=== PATIENT | female | born 1955 | race Caucasian/White ===

== ENCOUNTER 2016-09-29 16:50 | Inpatient (IN) | payer SELFPAY ==
[2016-09-29] MEDS ORDERED: NS 0.9% 1000 ML* 2,000 ML IV ONE (17:36)
[2016-09-29 18:50] LABS: Hematocrit 34 % (35-47); Hemoglobin 10.6 g/dl (12.0-16.0); Mean Corpuscular HGB Conc 31 g/dl (31-36); Mean Corpuscular Hemoglobin 23 pg (27-31); Mean Corpuscular Volume 73 fL (80-97); Mean Platelet Volume 8 um3 (7.4-10.4); Red Blood Count 4.69 10^6/ul (4.0-5.4); Red Cell Distribution Width 19 % (10.5-15); White Blood Count 13.9 10^3/ul (3.5-10.8)
[2016-09-29 18:51] LABS: Add Diff/Slide Review? Slide Review Added; Comments Flag Yes
[2016-09-29 19:05] LABS: Albumin 4.3 g/dL (3.2-5.2); BUN/Creatinine Ratio 21.9 (8-20); C Reactive Protein 83.55 mg/L (< 5.00); Calcium 9.7 mg/dL (8.6-10.3); EGFR Non-African American 59.1 (>60); Magnesium 2.2 mg/dL (1.9-2.7); Potassium 3.8 mmol/L (3.5-5.0); Total Protein 7.3 g/dL (6.4-8.9)
[2016-09-29 19:09] LABS: Troponin I 0.07 ng/mL (<0.04)
--- NOTE | 2016-09-29 19:10 | RAD ---
Indication: Right leg pain and edema. Duplex Doppler sonography of the deep venous system of the right lower extremity deep venous system was performed. Right common femoral vein, proximal greater saphenous vein, proximal deep femoral vein, femoral vein, popliteal vein, posterior tibial veins and peroneal veins appear to demonstrate echogenic material with no flow.. Findings are consistent with deep venous thrombosis in the right lower extremity. The left common femoral vein demonstrates wall thickening consistent with old deep venous thrombosis. IMPRESSION: EXTENSIVE DEEP VENOUS THROMBOSIS FROM THE RIGHT COMMON FEMORAL VEIN TO THE PERONEAL VEINS.
--- NOTE | 2016-09-29 19:16 | RAD ---
Indication: Shortness of breath, pneumonia. 2 views of the chest demonstrates no mediastinal shift. Heart is of normal size and configuration. Lung evans demonstrate no pleural fluid, pneumonia or pneumothorax. No alveolar consolidation is noted. There are multiple metallic densities throughout both lung evans. 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 IMPRESSION: No active cardiopulmonary disease is noted. 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
[2016-09-29 19:45] LABS: TSH (Thyroid Stimulating Horm) 1.47 mcIU/mL (0.34-5.60)
[2016-09-29] MEDS ORDERED: Heparin VIAL(*) 5000 UNITS/ML VIAL (FIVE THOUSAND) IV SCH (20:00)
[2016-09-29 20:06] LABS: Hematocrit 31 % (35-47); Hemoglobin 9.8 g/dl (12.0-16.0); Mean Corpuscular HGB Conc 32 g/dl (31-36); Mean Corpuscular Hemoglobin 23 pg (27-31); Mean Platelet Volume 8 um3 (7.4-10.4); Red Blood Count 4.22 10^6/ul (4.0-5.4); Red Cell Distribution Width 19 % (10.5-15); White Blood Count 10.5 10^3/ul (3.5-10.8)
[2016-09-29 20:09] LABS: Comments Flag Yes
[2016-09-29 20:10] LABS: Mean Corpuscular Volume 73 fL (80-97)
[2016-09-29] MEDS ORDERED: Iodixanol* (CONTRAST) 320 MG/ML 100 ML SDV IV ONE (20:25)
--- NOTE | 2016-09-29 20:27 | ED ---
Kelsey Vega Michael, scribed for Pineda Slater MD on 09/29/16 at 1746 . Complex/Multi-Sys Presentation - HPI Summary HPI Summary: 60 y/o female comes to the ED presenting with multiple sx that started two days ago. The pt reports that that her blood pressure has been decreasing for the past two days. Her blood pressure at home was 80/50 per nurse's note. Today the pt had generalized weakness and was unable to get up after a mechanical fall today. She also c/o right groin pain that radiates to her back and down the RLE. She is worried about a DVT because she has a positive hx of DVT. The pt is also presents dizziness, chills, near syncope, visual changes for 30 minutes one day ago, CP, and SOB that is aggravated with deep breathes. She denies fever. The PMHx is significant for HHT and DVT. - History Of Current Complaint Chief Complaint: EDWeakness Time Seen by Provider: 09/29/16 17:18 Hx Obtained From: Patient, Medical Records Onset/Duration: Sudden Onset, Lasting Days Severity Currently: Moderate Severity Initially: Moderate Location: Pain At: - right groin, Radiates To: - back and down RLE Aggravating Factor(s): SOB-aggravated by deep breathes Associated Signs And Symptoms: Positive: SOB, Chest Pain, Back Pain, Other - presents dizziness, chills, near syncope, visual changes. Negative: Dysuria, Fever - Allergies/Home Medications Allergies/Adverse Reactions: Allergies Allergy/AdvReac Type Severity Reaction Status Date / Time Penicillins Allergy Severe See Comment Verified 06/05/16 23:40 No MRI Allergy See Comment Uncoded 06/05/16 23:42 contrast AdvReac See Comment Uncoded 06/05/16 23:43 PMH/Surg Hx/FS Hx/Imm Hx Endocrine/Hematology History: Reports: Hx Blood Disorders, Hx Blood Transfusions - 2 units PRBC's given today. 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 No new growth. Occured over 10 years ago. No use of chemotherapy, or radiation. Hx Chemotherapy: No Hx Radiation Therapy: No - Surgical History Surgery Procedure, Year, and Place: 2004 back surgery; bone spur removed from spinal column Hx Anesthesia Reactions: No Infectious Disease History: No Infectious Disease History: Denies: Traveled Outside the [place] in Last 30 Days - Family History Known Family History: Positive: None Family History: No FHx of Breast CA - Social History Occupation: Unemployed Lives: Alone Alcohol Use: None Substance Use Type: Reports: None Smoking Status (MU): Never Smoked Tobacco Review of Systems Positive: Chills. Negative: Fever Positive: Other - visual changes Positive: Chest Pain Positive: Shortness Of Breath Neurological: Other - dizziness-described as near syncope Positive: Weakness All Other Systems Reviewed And Are Negative: Yes Physical Exam - Summary Physical Exam Summary: The patient is well-nourished in no acute distress and in no acute pain. The skin is warm and dry and skin color reflects adequate perfusion. HEENT: The head is normocephalic and atraumatic. The pupils are equal and reactive. The conjunctivae are clear and without drainage. Nares are patent and without drainage. Mouth reveals dry mucous membranes and the throat is without erythema and exudate. The external ears are intact. The ear canals are patent and without drainage. The tympanic membranes are intact. Neck is supple with full range of motion and non-tender. There are no carotid bruits. There is mild neck vein distension. Respiratory: Chest is non-tender. Lungs are clear to auscultation and breath sounds are symmetrical and equal. Cardiovascular: Hear is regular rate and rhythm. There is no murmur or rub auscultated. There is no peripheral edema and pulses are symmetrical and equal. Abdomen: The abdomen is soft with RLQ tenderness. There are normal bowel sounds heard in all four quadrants and there is no organomegaly palpated. Musculoskeletal: Right high tenderness with full range of motion. There is good capillary refill. There is no peripheral edema or calf tenderness elicited. Neurological: Patient is alert and oriented to person, place and time. The patient has generalized weakness. Psychiatric: The patient has an appropriate affect and does not exhibit any anxiety or depression. Triage Information Reviewed: Yes Vital Signs On Initial Exam: Initial Vitals Temp Pulse Resp BP Pulse Ox 98.7 F 128 19 93/63 84 09/29/16 16:59 09/29/16 16:59 09/29/16 16:59 09/29/16 16:59 09/29/16 16:59 Vital Signs Reviewed: Yes Diagnostics - Vital Signs Vital Signs Temp Pulse Resp BP Pulse Ox 09/29/16 16:59 98.7 F 128 19 93/63 84 - Laboratory Lab Results: Lab Results 09/29/16 09/29/16 09/29/16 Range/Units 18:40 18:40 18:40 WBC 13.9 H (3.5-10.8) 10^3/ul RBC 4.69 (4.0-5.4) 10^6/ul Hgb 10.6 L (12.0-16.0) g/dl Hct 34 L (35-47) % MCV 73 L (80-97) fL MCH 23 L (27-31) pg MCHC 31 (31-36) g/dl RDW 19 H (10.5-15) % Plt Count 165 (150-450) 10^3/ul MPV 8 (7.4-10.4) um3 Neut % (Auto) 84.4 H (38-83) % Lymph % (Auto) 8.7 L (25-47) % [place]acier % (Auto) 5.9 (1-9) % Eos % (Auto) 0.4 (0-6) % Baso % (Auto) 0.6 (0-2) % Absolute Neuts (auto) 11.8 H (1.5-7.7) 10^3/ul Absolute Lymphs (auto) 1.2 (1.0-4.8) 10^3/ul Absolute Monos (auto) 0.8 (0-0.8) 10^3/ul Absolute Eos (auto) 0 (0-0.6) 10^3/ul Absolute Basos (auto) 0.1 (0-0.2) 10^3/ul Absolute Nucleated RBC 0 10^3/ul Nucleated RBC % 0 INR (Anticoag Therapy) 1.16 H (0.89-1.11) APTT 27.6 (26.0-36.3) seconds Sodium 132 L (133-145) mmol/L Potassium 3.8 (3.5-5.0) mmol/L Chloride 98 L (101-111) mmol/L Carbon Dioxide 27 (22-32) mmol/L Anion Gap 7 (2-11) mmol/L BUN 21 (6-24) mg/dL Creatinine 0.96 H (0.51-0.95) mg/dL Est GFR ( Amer) 76.0 (>60) Est GFR (Non-Af Amer) 59.1 (>60) BUN/Creatinine Ratio 21.9 H (8-20) Glucose 111 H (70-100) mg/dL Lactic Acid (0.5-2.0) mmol/L Calcium 9.7 (8.6-10.3) mg/dL Magnesium 2.2 (1.9-2.7) mg/dL Total Bilirubin 2.00 H (0.2-1.0) mg/dL AST 10 L (13-39) U/L ALT 10 (7-52) U/L Alkaline Phosphatase 108 H (34-104) U/L Troponin I 0.07 H* (<0.04) ng/mL C-Reactive Protein 83.55 H (< 5.00) mg/L B-Natriuretic Peptide ( - 100) pg/mL Total Protein 7.3 (6.4-8.9) g/dL Albumin 4.3 (3.2-5.2) g/dL Globulin 3.0 (2-4) g/dL Albumin/Globulin Ratio 1.4 (1-3) TSH 1.47 (0.34-5.60) mcIU/mL 09/29/16 09/29/16 09/29/16 Range/Units 18:40 18:40 19:55 WBC (3.5-10.8) 10^3/ul RBC (4.0-5.4) 10^6/ul Hgb (12.0-16.0) g/dl Hct (35-47) % MCV (80-97) fL MCH (27-31) pg MCHC (31-36) g/dl RDW (10.5-15) % Plt Count (150-450) 10^3/ul MPV (7.4-10.4) um3 Neut % (Auto) (38-83) % Lymph % (Auto) (25-47) % Glacier % (Auto) (1-9) % Eos % (Auto) (0-6) % Baso % (Auto) (0-2) % Absolute Neuts (auto) (1.5-7.7) 10^3/ul Absolute Lymphs (auto) (1.0-4.8) 10^3/ul Absolute Monos (auto) (0-0.8) 10^3/ul Absolute Eos (auto) (0-0.6) 10^3/ul Absolute Basos (auto) (0-0.2) 10^3/ul Absolute Nucleated RBC 10^3/ul Nucleated RBC % INR (Anticoag Therapy) (0.89-1.11) APTT 25.7 L (26.0-36.3) seconds Sodium (133-145) mmol/L Potassium (3.5-5.0) mmol/L Chloride (101-111) mmol/L Carbon Dioxide (22-32) mmol/L Anion Gap (2-11) mmol/L BUN (6-24) mg/dL Creatinine (0.51-0.95) mg/dL Est GFR ( Amer) (>60) Est GFR (Non-Af Amer) (>60) BUN/Creatinine Ratio (8-20) Glucose (70-100) mg/dL Lactic Acid 1.8 (0.5-2.0) mmol/L Calcium (8.6-10.3) mg/dL Magnesium (1.9-2.7) mg/dL Total Bilirubin (0.2-1.0) mg/dL AST (13-39) U/L ALT (7-52) U/L Alkaline Phosphatase (34-104) U/L Troponin I (<0.04) ng/mL C-Reactive Protein (< 5.00) mg/L B-Natriuretic Peptide 12 ( - 100) pg/mL Total Protein (6.4-8.9) g/dL Albumin (3.2-5.2) g/dL Globulin (2-4) g/dL Albumin/Globulin Ratio (1-3) TSH (0.34-5.60) mcIU/mL 09/29/16 09/29/16 Range/Units 19:55 19:55 WBC 10.5 (3.5-10.8) 10^3/ul RBC 4.22 (4.0-5.4) 10^6/ul Hgb 9.8 L (12.0-16.0) g/dl Hct 31 L (35-47) % MCV 73 L (80-97) fL MCH 23 L (27-31) pg MCHC 32 (31-36) g/dl RDW 19 H (10.5-15) % Plt Count 149 L (150-450) 10^3/ul MPV 8 (7.4-10.4) um3 Neut % (Auto) 83.1 H (38-83) % Lymph % (Auto) 9.3 L (25-47) % [place] % (Auto) 6.6 (1-9) % Eos % (Auto) 0.4 (0-6) % Baso % (Auto) 0.6 (0-2) % Absolute Neuts (auto) 8.7 H (1.5-7.7) 10^3/ul Absolute Lymphs (auto) 1.0 (1.0-4.8) 10^3/ul Absolute Monos (auto) 0.7 (0-0.8) 10^3/ul Absolute Eos (auto) 0 (0-0.6) 10^3/ul Absolute Basos (auto) 0.1 (0-0.2) 10^3/ul Absolute Nucleated RBC 0 10^3/ul Nucleated RBC % 0 INR (Anticoag Therapy) (0.89-1.11) APTT (26.0-36.3) seconds Sodium (133-145) mmol/L Potassium (3.5-5.0) mmol/L Chloride (101-111) mmol/L Carbon Dioxide (22-32) mmol/L Anion Gap (2-11) mmol/L BUN 21 (6-24) mg/dL Creatinine (0.51-0.95) mg/dL Est GFR ( Amer) (>60) Est GFR (Non-Af Amer) (>60) BUN/Creatinine Ratio (8-20) Glucose (70-100) mg/dL Lactic Acid (0.5-2.0) mmol/L Calcium (8.6-10.3) mg/dL Magnesium (1.9-2.7) mg/dL Total Bilirubin (0.2-1.0) mg/dL AST (13-39) U/L ALT (7-52) U/L Alkaline Phosphatase (34-104) U/L Troponin I (<0.04) ng/mL C-Reactive Protein (< 5.00) mg/L B-Natriuretic Peptide ( - 100) pg/mL Total Protein (6.4-8.9) g/dL Albumin (3.2-5.2) g/dL Globulin (2-4) g/dL Albumin/Globulin Ratio (1-3) TSH (0.34-5.60) mcIU/mL Result Diagrams: 09/29/16 19:55 09/29/16 19:55 Lab Statement: Any lab studies that have been ordered have been reviewed, and results considered in the medical decision making process. - Radiology CXR Xray Interpretation: Positive (See Comments) - No active cardiopulmonary disease is noted. 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 Radiology Interpretation Completed By: Radiologist - EKG EK EKG Rhythm: Sinus Tachycardia ST Segment: Normal - Additional Comments Diagnostic Additional Comments: VENOUS DOPPLER: RADIOLOGIST-EXTENSIVE DEEP VENOUS THROMBOSIS FROM THE RIGHT COMMON FEMORAL VEIN TO THE PERONEAL VEINS. Complex Multi-Symp Course/Dx Course Of Treatment: discussed case with Dr. Hinton he will evaluate pt for admission. He recommends phone consultation with hematology marine electronics repairer, Dr. South. Dr. South recommended anticoagulation with heparin as a continuous infusion without a bolus. He also recommended CTA of Head to exclude cerebral aneurysm. Pt had prior history of intracerebral bleed. Patient will require 13 hour preparation to do the CTA because of previous anaphylaxis to Penicillin. Pt will be admitted. This is a difficult case because of the pt's history of HHT and previous intracerebral bleed. - Diagnoses Differential Diagnoses/HQI/PQRI: Metabolic Abnormality, Other - myocardial infarct, pulmonary embolus, DVT, dehydration, anemia Provider Diagnoses: DVT of RLE - Critical Care Time Critical Care Time: 30-74 min - 45 minutes of critical care time includes time with pt and friends, consulting physicians, review of old records and laboratory radiological studies. Discharge - Discharge Plan Condition: Stable Disposition: ADMITTED TO [facility] Discharge Disposition Comment: Pt will be admitted to [facility]. Referrals: Inez Christianson MD [Primary Care Provider] - The documentation as recorded by the Kelsey garcia Michael accurately reflects the service I personally performed and the decisions made by me, Pineda Slater MD.
[2016-09-29] MEDS: Heparin DRIP 25,000 UNITS(*) 25,000 UNITS/500 ML BAG IV SCH (20:33)
[2016-09-29 20:50] LABS: Urine Bacteria 1+ (Absent); Urine Bilirubin Negative (Negative); Urine Glucose Negative (Negative); Urine Nitrite Negative (Negative)
[2016-09-29] MEDS ORDERED: Gabapentin CAP(*) 100 MG PO SCH (21:00)
--- NOTE | 2016-09-29 21:04 | RAD ---
Indication: History of bleed. CT of the brain was performed without IV contrast. Ventricular structures are midline. No midline shift is noted. There is a prominent left vertebral artery with calcifications noted. There is a focus of increased density in the right temporal lobe just adjacent to the basal ganglia. This was in the area of prior hemorrhage is small hemorrhage is not excluded. Follow-up exam is suggested. The extra-axial spaces are unremarkable. Calcification is noted high in the left frontal convexity. IMPRESSION: Tiny area of hyperdensity in the right basal ganglia. I cannot totally exclude a small hemorrhage. Follow-up exam is suggested.
--- NOTE | 2016-09-29 21:13 | RAD ---
Indication: Evaluate for pulmonary embolus. CTA of the chest was performed after IV contrast administration. Coronal and sagittal reconstructed images were obtained. Administered 79.9 ml of VISAPAQUE 320 mgi/ml was given according to hospital protocol. The pulmonary arterial tree is well opacified. No filling defects are noted to suggest pulmonary embolus. Aorta demonstrates no evidence of aortic dissection or aneurysmal dilatation. Heart is of normal size without evidence of pericardial effusion. Trachea and major bronchi appear patent. Patient does have multiple metallic coils from prior embolization. No focal nodules are identified. There is no mediastinal or hilar adenopathy noted. The inferior thyroid lobes are unremarkable. The axilla demonstrates no adenopathy. Visualized abdominal organs are unremarkable. IMPRESSION: No definite pulmonary embolus is noted. No aortic dissection.
--- NOTE | 2016-09-29 21:19 | RAD ---
Indication: Evaluate for cerebral aneurysm. CTA of the head was performed after IV contrast administration. Administered 59.9 ml of VISAPAQUE 320 mgi/ml was given according to hospital protocol. Coronal and sagittal reconstructed images were obtained. Air-fluid level is noted in the maxillary sinuses. The intracranial carotid arteries demonstrates no evidence of carotid artery dissection. No evidence of aneurysm dilatation is noted. No branch occlusion is identified. A dominant left vertebral artery is noted. Basilar artery is unremarkable. Posterior cerebral arteries are unremarkable. Enhancing lesion is noted in the left occipital lobe. The possibility of a AV malformation should be considered. Additional area of nonspecific enhancement is noted in the right frontal lobe as well. IMPRESSION: NO EVIDENCE OF ANEURYSMAL DILATATION OR BRANCH OCCLUSION IS NOTED. AREAS OF ENHANCEMENT AND ENLARGED VESSELS ARE NOTED IN THE RIGHT FRONTAL LOBE AND LEFT OCCIPITAL LOBE SUSPICIOUS FOR AV MALFORMATIONS.
[2016-09-29] MEDS ORDERED: Gabapentin CAP(*) 100 MG ONE (21:41)
[2016-09-29] MEDS: HYDROmorphone INJ* 1 MG/ML CARPUJECT SYRINGE IV SLOW PU PRN (22:26)
[2016-09-29] MEDS: Metaxalone TAB* 800 MG PO SCH (23:31)
--- NOTE | 2016-09-30 02:05 | HP ---
HISTORY AND PHYSICAL: DATE OF ADMISSION: 09/29/16 CHIEF COMPLAINT: Leg pain. HISTORY OF PRESENT ILLNESS: The patient is a 60-year-old, says she does take pain medications, thinks she realized her right leg has been hurting more than usual. The pain went all the way up to her groin area. It did not turn purple or hard, which usual happens when she has had DVTs before. She also feels her blood pressure has been quite erratic going 40 points up in either direction. What happened was this afternoon she felt like her legs buckled and she was dizzy and she could not get back up, so what she did was come to the ER for further evaluation. She is short of breath and says she is always short of breath. She felt her heart was beating fast, but was not irregular. In the ED, the patient was found to have an extensive DVT. It should be noted that the patient says that she has a history of a brain bleed, but this happened after back surgery and was not as much related to Coumadin as was previously thought. She was told not to be on Coumadin before again because of her history of a brain bleed. PAST MEDICAL HISTORY: Significant for hereditary hemorrhagic telangiectasia also known as Pcmgh-Veiht-Wkocq, heterozygous factor V Leiden, left lower extremity DVT, right basal ganglia intraparenchymal hemorrhage in April 2010. At that time, the patient was supposedly on Coumadin and discontinued as she already had an IVC filter in place. The patient said this is not exactly correct that she actually was not on Coumadin and told never to be on it again. Hypertension, status post C- section x2, status post tonsillectomy. CURRENT MEDICATIONS: As follows: 1. Morphine sulfate 60 mg 3 times daily. 2. Gabapentin 800 mg 3 times a day. 3. Ferrous sulfate 325 mg daily. 4. Vitamin B12 1000 mcg daily. 5. Vitamin D3 2000 units daily. 6. Calcium with magnesium 1 tablet daily. 7. Ascorbic acid vitamin C 500 mg daily. ALLERGIES: The patient has an allergy to PENICILLIN, she experienced hives and with PERCOCET, she has hallucinations. She tolerates OxyContin. FAMILY HISTORY: The patient's father of heart disease. The patient's mother has diabetes. Aunt has breast cancer. Her son had a stroke. SOCIAL HISTORY: No tobacco, alcohol, or recreational drug use. 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 She is with 2 sons. Roberth Stafford is her first son, [phone]. Haris Stafford, , is her second son; and her friend is Nikia George, . All could be contacted as her healthcare proxy. REVIEW OF SYSTEMS: A 14-point review of systems was completed with the patient. All pertinent positives and negatives are in the history of present illness, otherwise is negative. PHYSICAL EXAMINATION GENERAL: Pleasant woman, lying in bed, in no acute distress. VITAL SIGNS: Temperature 98.7 degrees, heart rate 128 beats per minute, respiratory rate 19 breaths a minute, pulse ox 84%, blood pressure 92/63. HEENT: Normocephalic, atraumatic. Pupils equal, round, and reactive to light. Moist mucous membranes. NECK: Supple. No JVD, bruits, palpable thyroid, or lymphadenopathy. CHEST: Clear to auscultation and percussion bilaterally. CARDIOVASCULAR: S1, S2 appreciated. Regular rate and rhythm. ABDOMEN: Positive bowel sounds in all 4 quadrants. Soft, nontender, nondistended. EXTREMITIES: No cyanosis, clubbing, or edema. +2 peripheral pulses bilaterally. NEUROLOGICAL: Alert and oriented x3, moves all extremities. SKIN: No rashes or abnormalities. DIAGNOSTIC STUDIES/LAB DATA: White count is 10.5, hemoglobin 9.8, hematocrit 31, platelets are 149. Sodium is 132, potassium 3.8, chloride 98, CO2 27, BUN 21, creatinine 0.96, glucose 111, troponin 0.07. INR 1.16 and PTT 25.7. Urinalysis unremarkable. Venous duplex was interpreted by Radiology as extensive DVT of the right common femoral to the peroneal veins. Chest x-ray was interpreted by Radiology as no active cardiopulmonary disease noted. 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 EKG shows sinus tachycardia, 105 beats a minute, left axis deviation, left anterior hemiblock. No acute ST-T wave changes. CTA of the chest was no definitive pulmonary embolus is noted. No aortic dissection. Head CTA shows no evidence of aneurysmal dilatation or branch occlusion is noted. Areas of enhancement and large vessels noted on the right frontal lobe and left occipital lobe suspicious for AV malformation. Brain CT shows tiny area of hyperdensity in the right basal ganglia. I cannot totally exclude a small hemorrhage. Followup is suggested. ASSESSMENT AND PLAN: 1. Deep venous thrombosis, but no pulmonary embolism. This is quite complicated. The patient does have a history of a brain bleed, but apparently she was not on Coumadin as per the patient at this time. She was told to avoid in the future. However, her risk of pulmonary embolism is quite significant with extensive deep venous thrombosis. I have spoken with Hematology, Dr. Saúl South. He recommends putting her on anticoagulation for now. It does not appear that the brain CT actually shows a small hemorrhage, but we will monitor, may be repeat it in the a.m. We will do neurological checks q.4 hours as well. We are not giving any bolus on the heparin as well. May be the appropriate decision will be to take out her old IVC filter, replace that. 2. Chronic pain. Continue gabapentin and morphine. 3. Anemia. Continue ferrous sulfate. 4. FEN. Regular diet. 5. DVT prophylaxis. She is on the heparin drip. 6. The patient is a full code. TIME SPENT: Over 80 minutes were spent on this H and P, more than 45 minutes of which was spent in direct [id number] contact with the patient in evaluation , physical exam, counseling, and coordination of care. CC: Dr. Inez Christianson; Dr. Saúl South* [id number]/[facility] #: [id number] MTDD
[2016-09-30] MEDS: HYDROmorphone INJ* 1 MG/ML CARPUJECT SYRINGE IV SLOW PU PRN ×6 (02:16→23:39)
[2016-09-30 07:59] LABS: Troponin I 0.09 ng/mL (<0.04)
[2016-09-30] MEDS: Gabapentin CAP(*) 400 MG PO SCH ×3 (08:07→21:20)
[2016-09-30] MEDS: Cholecalciferol TAB* 1000 UNITS PO SCH (08:08)
[2016-09-30] MEDS: Cyanocobalamin TAB* 500 MCG PO SCH (08:08)
[2016-09-30] MEDS: Ferrous Sulfate TAB* 325 MG PO SCH (08:08)
[2016-09-30] MEDS: Ascorbic Acid TAB* 500 MG PO SCH (08:08)
[2016-09-30] MEDS: Atorvastatin* 10 MG TAB PO SCH (08:09)
[2016-09-30] MEDS: CALCIUM PO SCH (08:12)
[2016-09-30] MEDS: MAGNESIUM PO SCH (08:12)
[2016-09-30] MEDS: Metaxalone TAB* 800 MG PO SCH ×3 (08:33→23:56)
[2016-09-30] MEDS ORDERED: ASCORBIC ACID 500 MG PO SCH (09:00)
[2016-09-30] MEDS ORDERED: oxyCODONE SR TAB(*) 20 MG TAB.SR PO SCH ×2 (09:00→18:58)
[2016-09-30] MEDS ORDERED: Iodixanol* (CONTRAST) 320 MG/ML 100 ML SDV IV SCH (14:20)
--- NOTE | 2016-09-30 14:35 | CONS ---
AMENDED REPORT NOW INCLUDES DATE OF CONSULT - ESIGNED BEFORE ADJUSTMENT CONSULTATION NOTE: DATE OF CONSULT/DICTATION: 09/30/16 REASON FOR CONSULT: Leg pain. IDENTIFICATION: A 60-year-old female with history of HHT, hereditary hemorrhagic telangiectasias, and acute recurrent DVT right leg. HISTORY OF PRESENT ILLNESS: A 60-year-old female who initially presented in 2004. She had had a back surgery, followed by immobilization and a DVT, unclear if it was right or left leg. Soon after starting anticoagulants, she developed gross hematuria. 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 Anticoagulation was stopped and she was transferred to [facility] by her report and did not receive surgery. In retrospect, this was likely AV malformation. In 2008, she had an EGD that showed multiple gastric AV malformations. She developed a recurrent thrombosis, lower extremity DVT in 2009 and was placed back on anticoagulation. She subsequently presented in April 2010 with acute intracranial hemorrhage and an INR of 2.1. She was then taken off anticoagulation again. Approximately at that time, she had an IVC filter placed to prevent future PE in the setting of known DVT and the contraindication to blood thinners. She presented in October 2011 with progressive left lower extremity pain, similar to left leg pain she developed in 2009. The ultrasound showed chronic thrombosis with extension of her DVT. She was seen by Dr. Norris at that time for extension of her left lower extremity DVT and recommendation was for no anticoagulation given her prior bleeding events as well as, evaluation for HHT and evaluation of her IVC filter. She was ultimately diagnosed with HHT and she does not recall the outcome of any filter evaluation, but she remained off the anticoagulants from 2011 until today. She focused on DVT prevention with hydration, frequent walking. Seven days ago, she developed pain in the right lower extremity that extended up into her abdomen. Pain is in the calf and the foot and became increasingly severe. Pain at this time is 8 to 9 out of 10 and she is immobilized. She went to the emergency room yesterday, had a lower extremity Doppler that showed DVT in the popliteal vein up into the common femoral on the right leg. Thrombosis was thought to extend up into the iliacs and/or IVC. She was placed on ITOX by Dr. Cobos last night with a known history of HHT, she was placed on IV heparin with observation. This morning, the pain continues. She has had no additional bleeding on heparin overnight. In addition to the gross hematuria, MANAGER EQUIPMENT bleed, and pulmonary hemorrhage, she has also had multiple episodes of epistaxis which is a chronic problem for her. We have documentation that two of her significant bleeding events occurred on Coumadin. It appears that some of the pulmonary hemorrhage occurred when she was off anticoagulation. She has a son with HHT and he had a MANAGER EQUIPMENT bleed as well. PAST MEDICAL HISTORY: 1. Chronic pain syndrome likely from prior DVTs as well as history of T7 mass requiring surgery. 2. History of [place] spotted fever. 3. HHT as noted above. 4. Extensive DVT. 5. Hemorrhage. 6. IVC filter. 7. Hypertension. 8. Leiden factor V heterozygous. PAST SURGICAL HISTORY: Spine surgery, x2, tonsillectomy. MEDICATIONS: 1. Vitamin C 500 a day. 2. Lipitor 10 a day. 3. Vitamin D 2000 a day. 4. Vitamin B12 1000 a day. 5. Ferrous sulfate 325 daily. 6. Gabapentin 800 t.i.d. 7. IV heparin. 8. Skelaxin 800 t.i.d. 9. IV Dilaudid p.r.n. 10. Oxycodone 60 mg p.o. daily. ALLERGIES: PENICILLIN. FAMILY HISTORY: Son has HHT. Mother has diabetes and had breast cancer. Multiple family members with early . SOCIAL HISTORY: No tobacco or alcohol. . Son, Roberth Stafford, phone number [phone] and second son French Stafford, phone number [phone]. REVIEW OF SYSTEMS: HEENT: Nosebleeds. No oral telangiectasias, otherwise negative. Neuro: When she is tired, she has some left facial changes, no other residual effects from her hemorrhage. Pulmonary: Chronic oxygen. Chronic shortness of breath. Cardiac: Saw Dr. Christianson recently for some cardiac symptoms and had an EKG that was essentially negative. GI: History of gastric AVMs, constipation from chronic iron. : Hematuria in the past, none recently. Musculoskeletal: Chronic pain in the back. She has severe leg pain at this time and abdominal pain. Hematologic: As noted above. Skin: Negative. PHYSICAL EXAM: Temperature 98.3, pulse 60, respirations 16, O2 sat 90%, blood pressure 102/62. HEENT: Mucosa moist. No lesions. No lymphadenopathy. She has upper dentures. No visible AVMs. Lungs: Clear to auscultation. No wheezing. Heart: Regular rhythm. S1 and S2. No murmurs or gallops. Abdomen: Diffusely tender with lot of right lower quadrant tenderness. No hepatosplenomegaly, but exam limited. She does have good bowel sounds. Extremities: Some swelling in both legs, right is not clear, worse on left. She is tender to touch on the right lower extremity. Neurologic: CN II through XII intact. Strength: 5/5 throughout, but not tested in the right lower extremity because of pain. Intact sensation throughout. Alert and oriented x3. Nonfocal exam. Skin: No active bruising. DIAGNOSTIC STUDIES/ LAB DATA: She has troponin 0.07 and 0.09. Bilirubin of 2. Normal LFTs. Creatinine 0.96. Hemoglobin 9.8, MCV 73, platelet count 149, and white count 10.5. CT angiogram of the head was reviewed and there are two areas of telangiectasias , no active bleeding. The area of prior hemorrhage shows some density likely residual from her prior bleed, It is very small area, there are no telangiectasias anymore at that site. CTA of the chest shows coils, no PE, no pulmonary nodules or infiltrates, and ultrasound as discussed above. ASSESSMENT AND PLAN: A 60-year-old female with history of hereditary hemorrhagic telangiectasia as well as additional prothrombotic state of heterozygous Leiden factor V who presents with acute right DVT, history of multiple deep vein thrombosis, and extensive bleeding in the past on anticoagulation. There are multiple articles in hereditary hemorrhagic telangiectasia which show relative safety of anticoagulation in patients with thrombotic events. This includes a glazier stained glass to NEJM from 2015 which reviewed 700 patients. Increased risk of epistaxis but rare serious bleeding. However, this is overwritten of her personal history of recurrent hemorrhage. She cannot be safely anticoagulation. At this time, it is a very difficult decision because of leg pain and acute thrombosis is quite severe. Discussed with the patient the risk of catastrophic events on blood thinners as well as likelihood of chronic pain with progression of her thrombosis. While in the hospital today, she wants to stay on the heparin, which I think is reasonable. There has been a discussion in the past of replacing her IVC filter , I do not know if this is realistic. We will perform a CT venogram to evaluate the extent of thrombosis. 1. I am continuing the heparin today. We will monitor closely, discontinue for any evidence of bleeding. 2. Options of anticoagulation would include nothing, low dose Lovenox, daily aspirin. 3. CT venogram today, possible replacement of her IVC filter if it has become a source of thrombosis. 4. She would like to be seen in specialized hereditary hemorrhagic telangiectasia clinic and we talked about going to [facility]. I think a second opinion on management would be a very good idea. We can work on arranging this after discharge. Plan at this time is to hold anticoagulation on discharge pending that evaluation.If There are no good solution to this patient. We will see if her symptoms improved over the next day or two and she will stay in the hospital today till we can make a definitive plan. We will continue to follow. CC: Dr. Christianson* [id number]/[facility] #: [id number] MTDD
--- NOTE | 2016-09-30 16:13 | RAD ---
Indication: Evaluate IVC filter in extent of right lower extremity thrombosis. CT of the abdomen and pelvis was performed after IV contrast administration. 100 mL of Visipaque 320 was given according to hospital protocol. Lung bases demonstrates coils in calcifications in the left lower lobe from prior coiling and AV malformation. Liver is normal in size. No focal lesions or intrahepatic ductal dilatation. The spleen is normal in size. Pancreas demonstrates no mass effect or ductal dilatation. The common duct is not dilated. The gallbladder is partially contracted. No pericholecystic fluid is noted. No dilated loops of bowel are noted. No adrenal lesions are noted. The right kidney appears to be irregular and atrophic. Left kidney appears to be within normal limits with normal excretion. There is enlargement of the right common femoral vein, external iliac vein, common iliac vein as well as enlargement of the inferior vena cava up to the level of the vena cava filter. This is consistent with thrombosis of the inferior vena cava caudal to the filter. The left common iliac vein and external iliac vein are grossly unremarkable. There are prominent collaterals in the subcutaneous tissue in the lower pelvis. This is felt to represent collateral venous flow. Myomatous changes of the uterus are noted. Urinary bladder is unremarkable. No hernias are identified. No free fluid is identified. IMPRESSION: THERE IS ENLARGEMENT OF THE INFERIOR VENA CAVA WITH LIKELY CLOT IN THE INFERIOR VENA CAVA CAUDAL TO THE INFERIOR VENA CAVA FILTER. THERE IS ENLARGEMENT AND NONENHANCEMENT OF THE RIGHT COMMON ILIAC VEIN, EXTERNAL ILIAC VEIN EXTENDING TO THE RIGHT COMMON FEMORAL VEIN. MYOMATOUS CHANGES OF THE UTERUS ARE NOTED. MULTIPLE COLLATERALS ARE NOTED IN THE SUBCUTANEOUS TISSUE IN THE LOWER PELVIS LIKELY REPRESENTING VENOUS COLLATERALS. ATROPHIC AND SCARRED RIGHT KIDNEY.
--- NOTE | 2016-09-30 16:16 | RAD ---
Indication: Headaches, evaluate for hemorrhage. CT of the brain was performed without IV contrast. Ventricular structures are midline. No midline shift is noted. The extra-axial spaces are unremarkable. Again noted is a faint hyperdense area in the right basal ganglia which is unchanged from previous exam. This has not increased in size since previous exam. Again this is in the region of the prior hemorrhage in the possibility of a thrombosed AV malformation should be considered although the possibility of hemorrhage is not totally excluded. No other areas of increased density is noted. Special attention was paid to the right frontal and left occipital areas. IMPRESSION: NO SIGNIFICANT CHANGE IS NOTED SINCE PREVIOUS EXAM OF SEPTEMBER 29, 2016 WITH VAGUE HYPODENSE AREA IN THE RIGHT BASAL GANGLIA.
[2016-09-30] MEDS: Heparin DRIP 25,000 UNITS(*) 25,000 UNITS/500 ML BAG IV SCH (17:29)
[2016-09-30] MEDS ORDERED: fentaNYL PATCH 25 MCG/HR TRANSDERM SCH ×2 (18:00→18:58)
--- NOTE | 2016-09-30 18:50 | PN ---
Subjective Date of Service: 09/30/16 Interval History: HOSPITALIST PROGRESS NOTE Patient seen and examined at bedside. Her major complaint is LLE pain, that she rates as severe. Denies headache, N/V. Family History: Unchanged from Admission Social History: Unchanged from Admission Past Medical History: Unchanged from Admission Objective Active Medications: Ascorbic Acid (Vitamin C Tab*) 500 mg PO DAILY [facility] Last Admin: 09/30/16 08:08 Dose: 500 mg Atorvastatin Calcium (Lipitor*) 10 mg PO DAILY [facility] Last Admin: 09/30/16 08:09 Dose: 10 mg Cholecalciferol (Vitamin D Tab*) 2,000 units PO DAILY [facility] Last Admin: 09/30/16 08:08 Dose: 2,000 units Cyanocobalamin (Vitamin B12 Tab*) 1,000 mcg PO DAILY [facility] Last Admin: 09/30/16 08:08 Dose: 1,000 mcg Fentanyl (Duragesic Patch 25 Mcg/Hr*) 25 mcg TRANSDERM Q72H [facility] Last Admin: 09/30/16 18:20 Dose: 25 mcg Ferrous Sulfate (Ferrous Sulfate Tab*) 325 mg PO DAILY [facility] Last Admin: 09/30/16 08:08 Dose: 325 mg Gabapentin (Neurontin Cap(*)) 800 mg PO TID [facility] Last Admin: 09/30/16 13:02 Dose: Not Given Heparin Sodium (Porcine) (Heparin Vial(*)) 0 units IV .PER PROTOCOL [facility] PRN Reason: Protocol Hydromorphone HCl (Dilaudid Iv*) 1 mg IV SLOW PU Q4H PRN PRN Reason: SEVERE PAIN Heparin Sodium/Dextrose (Heparin Drip 25,000 Units(*)) 25,000 units in 500 mls @ 0 mls/hr IV .NO BOLUSES PROTOCOL [facility]; Per Protocol PRN Reason: Protocol Last Admin: 09/30/16 17:29 Dose: 39 mls/hr Iodixanol (Visipaque* 320 (Contrast)) 100 ml IV ONCE [facility] Stop: 10/02/16 23:59 Last Admin: 09/30/16 16:02 Dose: 100 ml Metaxalone (Skelaxin Tab*) 800 mg PO TID [facility] Last Admin: 09/30/16 13:02 Dose: Not Given [Calcium & Magnesium (750-465 Mg] Tab) 1 tab PO DAILY [facility] Last Admin: 01/30/17 08:12 Dose: Not Given Oxycodone HCl (Oxycontin(*)) 60 mg PO DAILY [facility] Last Admin: 09/30/16 08:09 Dose: 60 mg Pharmacy Profile Note (Fentanyl Patch Check Q Shift) 1 note N/A 0700,1900 [facility] Vital Signs 09/30/16 09/30/16 09/30/16 08:12 09:46 11:04 Temperature 98.1 F Pulse Rate 93 Respiratory 18 16 16 Rate Blood Pressure 100/62 (mmHg) O2 Sat by Pulse 93 Oximetry Oxygen Devices in Use Now: None Appearance: Pleasant lady sitting up in bed in NAD. Eyes: No Scleral Icterus Ears/Nose/Mouth/Throat: Mucous Membranes Moist Neck: Trachea Midline Respiratory: Symmetrical Chest Expansion and Respiratory Effort, Clear to Auscultation Cardiovascular: RRR - Normal S1 and S2 with SM Abdominal: NL Sounds; No Tenderness; No Distention Extremities: No Edema Neurological: Alert and Oriented x 3, NL Muscle Strength and Tone Lines/Tubes/Other Access: Clean, Dry and Intact Peripheral IV Nutrition: Taking PO's Result Diagrams: 09/29/16 19:55 09/29/16 19:55 Assess/Plan/Problems-Billing Assessment: Mrs. Ivan is a 60yo F with a complex PMH including HHT, Factor V Leiden, multiple LE DVT, s/p IVC filter placement >10 years ago, right basal ganglia intraparenchymal hemorrhage in 2009 (while on Warfarin), HTN, chronic pain, who presents to ED with c/o left LE pain, found to have extensive DVT. - Patient Problems (1) DVT (deep venous thrombosis) Comment: - LE doppler shows extensive DVT extending from right femoral vein to the peroneal veins. - CT abd/pelvis revealed enlargement of IVC with likely clot in the IVC caudal from IVC filter. Enlargement and non-enhancement of the right common iliac vein , external iliac vein extending to the right common femoral vein. - Neurology and Hematology inputs appreciated - quite a difficult case with very limited options. Plan at this time is to continue heparin drip with no boluses and pain management. Will discuss further options, including IVC filter exchange and possible evaluation at T clinic in [facility]. (2) Chronic pain Comment: - Will continue Gabapentin and Oxycodone, but with her extensive acute DVT will continue Dilaudid and add Fentanyl patch. (3) Anemia Comment: - Continue Ferrous sulfate. (4) DVT prophylaxis Comment: - Heparin drip. Status and Disposition: Inpatient.
[2016-09-30] MEDS: fentaNYL Patch Check Q Shift 1 NOTE SCH (19:04)
[2016-09-30] MEDS ORDERED: Temazepam CAP* 15 MG PO PRN (19:19)
--- NOTE | 2016-09-30 21:16 | CONS ---
NEUROLOGY CONSULTATION: DATE OF CONSULTATION: 09/30/16 LOCATION: She is an inpatient in room 447. REFERRING PHYSICIAN: Dr. Clifford. CHIEF COMPLAINT: History of intracranial hemorrhage, deep vein thrombosis. HISTORY OF PRESENT ILLNESS: Cleo Ivan is a 56-year-old woman who presented to the hospital yesterday with increased pain and swelling in her right leg, was found to have extension of her deep vein thromboses. She has a complicated history with a history of hereditary hemorrhagic telangiectasias involving her gastrointestinal system, pulmonary system, and resulting in a right intracranial hemorrhage in 2009. In addition to her hereditary vascular disorder , she has Leiden factor V heterozygosity with recurrent deep vein thromboses. She had been on anticoagulants in the past with multiple recurrent hemorrhages that had been avoided. She had an inferior vena cava filter placed approximately 10 years or so ago. I was asked to comment regarding risks of recurrent intracranial hemorrhage. She most recently has had epistaxis requiring transfusion this past year. She has had multiple coiling procedures of multiple vascular malformations over the years. Most currently, she has minimal to no headache, but is concerned that the left side of her eyelid is not working as properly as the right. She was left with some mild facial weakness on the left after recovering from a right basal ganglia hemorrhage in 2009. When she is tired, that left side does lag a bit relative to the right. At first, she said she is not that tired and should not be doing this, but later she admits she is exhausted and extremely frightened. PAST MEDICAL HISTORY: Also notable for hypertension, sections, tonsillectomy, labile hypertension, chronic neuropathic pain. CURRENT MEDICATIONS: Consist of: 1. Heparin IV infusion without boluses. 2. Skelaxin 800 mg p.o. t.i.d. 3. Oxycodone 60 mg p.o. daily, extended release. 4. Lipitor 10 mg p.o. daily. 5. Vitamin D 2000 units p.o. daily. 6. Vitamin B12 1000 mcg p.o. daily. 7. Ferrous sulfate 325 mg p.o. daily. 8. Gabapentin 800 mg p.o. t.i.d. ALLERGIES: She is allergic to PENICILLIN and CONTRAST DYE. REVIEW OF SYSTEMS: Notable for increased pain in her right leg superimposed on chronic pain. She does not have any headache today and has not had any severe headaches recently. She lives independently. She does not smoke. She has not been able to sleep since she has been here in the hospital and is very worried. She has had fluctuations in her blood pressure where it drops and she gets lightheaded recently, but it is hard to pin down how long that has been going on for. PHYSICAL EXAMINATION: She is overweight. Temperature 98.1 orally, blood pressure 100/62, heart rate 90 and seems regular, respirations 16, oxygen saturations 93% on supplemental oxygen. Heart is in a regular rate and rhythm without murmurs. Carotid pulses are present, there are no bruits. Oral mucosa is moist and atraumatic. Neurologically, pupils are small at about 2.5 mm, reacting consensually to light to 2 mm. Fundi reveal sharp discs and I do not see any hemorrhages. Eye movements are full. She has some puffiness and capillary dilatation of the left eyelid. Facial musculature is otherwise symmetrical. Facial sensation to light touch is symmetric in all 3 divisions. Palate and tongue are normal, palate rises symmetrically, speech is clear. Motor exam reveals normal strength in the upper extremities and no drift. She has good strength distally in the lower extremities, but I did not test proximal strength. She has a little bit of tremor in the fingers, but no myoclonus or asterixis. Reflexes are hypoactive and plantar responses are flexor. Sensory exam in the limbs is intact to pin and light touch. She is alert and oriented, but loses her train of concentration at times. Language is fluent. DIAGNOSTIC STUDIES/LAB DATA: Laboratory data includes a CT of the brain from , which I reviewed and which looks fairly normal. There may be some faint hypodensity in the right basal ganglia area from the old hemorrhage. There is also a small amount of high signal, which looks like old calcification. CT angiogram of the brain from yesterday is notable for some enhancement and vessel irregularities in the right frontal and left occipital lobe, suspicious for arteriovenous malformations. Other laboratory data notable for PTT most recently 32.9, it was 45.1 earlier today. INR, which came in yesterday, was 1.16. CBC is notable for hemoglobin at 10.6 yesterday and after hydration, 9.8. MCV is low at 73 and platelet counts 149,000. Chemistries from 09/29/16 notable for sodium of 132, troponin 0.07. IMPRESSION: Impression is that of risk of recurrent intracranial hemorrhage, but no current evidence to suggest that that has happened. Clearly she is at risk whether she is anticoagulated or not. I raised a question as to whether or not replacing her inferior vena cava filter would be adequate to protect her from a pulmonary embolus and avoid anticoagulation. I discussed my thoughts with Dr. Clifford and also the risks involved with anticoagulation versus not anticoagulating with the patient and answered her questions at length. CC: Dr. South; Dr. Christianson * [id number]/[facility] #: [id number] [facility]
[2016-09-30] MEDS ORDERED: HYDROmorphone INJ* 1 MG/ML CARPUJECT SYRINGE IV SLOW PU PRN ×2 (21:31)
[2016-10-01] MEDS: HYDROmorphone INJ* 1 MG/ML CARPUJECT SYRINGE IV SLOW PU PRN ×7 (03:05→14:52)
[2016-10-01] MEDS: fentaNYL Patch Check Q Shift 1 NOTE SCH (07:11)
[2016-10-01] MEDS: CALCIUM PO SCH (08:21)
[2016-10-01] MEDS: Metaxalone TAB* 800 MG PO SCH ×2 (08:21→14:16)
[2016-10-01] MEDS: MAGNESIUM PO SCH (08:21)
[2016-10-01] MEDS: Cyanocobalamin TAB* 500 MCG PO SCH (08:24)
[2016-10-01] MEDS: Cholecalciferol TAB* 1000 UNITS PO SCH (08:24)
[2016-10-01] MEDS: Gabapentin CAP(*) 400 MG PO SCH ×2 (08:24→14:15)
[2016-10-01] MEDS: Ascorbic Acid TAB* 500 MG PO SCH (08:25)
[2016-10-01] MEDS: Atorvastatin* 10 MG TAB PO SCH (08:25)
[2016-10-01] MEDS: Ferrous Sulfate TAB* 325 MG PO SCH (08:25)
--- NOTE | 2016-10-01 09:51 | PN ---
Progress Note - Progress Note SOAP: Subjective: "major" nose bleeding last night, stopped with an ice pack. otherwise tolerating her heparin drip. pain in leg bad but improving. less redness. 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 She is clearly in a precarious position right now, and understands that we are forced to decide between clotting and bleeding risk. She does seem to be tolerating the heparin drip relatively well. I would be interested to see what vascular thinks about replacing her IVC filter and how much systemic absorption local TPA would have (for example, could she have a catheter placed into the clot under close observation?). I have discussed this with Dr. Figueroa who will reach out to vascular at [facility].
--- NOTE | 2016-10-01 10:03 | PN ---
Subjective Date of Service: 10/01/16 Interval History: HOSPITALIST PROGRESS NOTE Family History: Unchanged from Admission Social History: Unchanged from Admission Past Medical History: Unchanged from Admission Objective Active Medications: Ascorbic Acid (Vitamin C Tab*) 500 mg PO DAILY [facility] Last Admin: 10/01/16 08:25 Dose: 500 mg Atorvastatin Calcium (Lipitor*) 10 mg PO DAILY [facility] Last Admin: 10/01/16 08:25 Dose: 10 mg Cholecalciferol (Vitamin D Tab*) 2,000 units PO DAILY [facility] Last Admin: 10/01/16 08:24 Dose: 2,000 units Cyanocobalamin (Vitamin B12 Tab*) 1,000 mcg PO DAILY [facility] Last Admin: 10/01/16 08:24 Dose: 1,000 mcg Fentanyl (Duragesic Patch 25 Mcg/Hr*) 25 mcg TRANSDERM Q72H [facility] Last Admin: 09/30/16 19:02 Dose: 25 mcg Ferrous Sulfate (Ferrous Sulfate Tab*) 325 mg PO DAILY [facility] Last Admin: 10/01/16 08:25 Dose: 325 mg Gabapentin (Neurontin Cap(*)) 800 mg PO TID [facility] Last Admin: 10/01/16 08:24 Dose: 800 mg Heparin Sodium (Porcine) (Heparin Vial(*)) 0 units IV .PER PROTOCOL [facility] PRN Reason: Protocol Hydromorphone HCl (Dilaudid Iv*) 1 mg IV SLOW PU Q2H PRN PRN Reason: PAIN Last Admin: 10/01/16 08:31 Dose: 1 mg Heparin Sodium/Dextrose (Heparin Drip 25,000 Units(*)) 25,000 units in 500 mls @ 0 mls/hr IV .NO BOLUSES PROTOCOL [facility]; Per Protocol PRN Reason: Protocol Last Admin: 09/30/16 17:29 Dose: 39 mls/hr Iodixanol (Visipaque* 320 (Contrast)) 100 ml IV ONCE [facility] Stop: 10/02/16 23:59 Last Admin: 09/30/16 16:02 Dose: 100 ml Metaxalone (Skelaxin Tab*) 800 mg PO TID [facility] Last Admin: 10/01/16 08:21 Dose: Not Given [Calcium & Magnesium (750-465 Mg] Tab) 1 tab PO DAILY [facility] Last Admin: 10/01/16 08:21 Dose: Not Given Oxycodone HCl (Oxycontin(*)) 60 mg PO DAILY [facility] Last Admin: 10/01/16 08:31 Dose: 60 mg Pharmacy Profile Note (Fentanyl Patch Check Q Shift) 1 note N/A 0700,1900 [facility] Last Admin: 10/01/16 07:11 Dose: 1 note Temazepam (Restoril Cap*) 15 mg PO BEDTIME PRN PRN Reason: INSOMNIA Vital Signs 09/30/16 09/30/16 09/30/16 11:04 14:30 17:31 Temperature 98.1 F Pulse Rate 93 Respiratory 16 18 18 Rate Blood Pressure 100/62 (mmHg) O2 Sat by Pulse 93 Oximetry 09/30/16 09/30/16 09/30/16 18:20 19:02 20:00 Temperature Pulse Rate Respiratory 18 20 18 Rate Blood Pressure (mmHg) O2 Sat by Pulse Oximetry 09/30/16 09/30/16 09/30/16 20:18 21:18 21:20 Temperature Pulse Rate Respiratory 18 20 16 Rate Blood Pressure (mmHg) O2 Sat by Pulse Oximetry 09/30/16 09/30/16 09/30/16 23:20 23:39 23:56 Temperature Pulse Rate Respiratory 18 20 16 Rate Blood Pressure (mmHg) O2 Sat by Pulse Oximetry 09/30/16 10/01/16 10/01/16 23:58 00:39 03:05 Temperature 99.6 F Pulse Rate 103 Respiratory 16 20 24 Rate Blood Pressure 121/69 (mmHg) O2 Sat by Pulse 97 Oximetry 10/01/16 10/01/16 10/01/16 03:43 04:05 04:34 Temperature 99.1 F Pulse Rate 94 Respiratory 16 20 20 Rate Blood Pressure 128/64 (mmHg) O2 Sat by Pulse 94 Oximetry 10/01/16 10/01/16 10/01/16 05:23 06:20 07:15 Temperature Pulse Rate Respiratory 20 20 18 Rate Blood Pressure (mmHg) O2 Sat by Pulse Oximetry 10/01/16 10/01/16 10/01/16 07:17 07:53 08:24 Temperature 98.4 F Pulse Rate 96 Respiratory 18 16 16 Rate Blood Pressure 127/71 (mmHg) O2 Sat by Pulse 95 Oximetry 10/01/16 08:31 Temperature Pulse Rate Respiratory 18 Rate Blood Pressure (mmHg) O2 Sat by Pulse Oximetry Oxygen Devices in Use Now: None Result Diagrams: 09/29/16 19:55 09/29/16 19:55 Additional Lab and Data: Lab Results 09/29/16 09/29/16 09/29/16 Range/Units 18:40 18:40 18:40 WBC 13.9 H (3.5-10.8) 10^3/ul RBC 4.69 (4.0-5.4) 10^6/ul Hgb 10.6 L (12.0-16.0) g/dl Hct 34 L (35-47) % MCV 73 L (80-97) fL MCH 23 L (27-31) pg MCHC 31 (31-36) g/dl RDW 19 H (10.5-15) % Plt Count 165 (150-450) 10^3/ul MPV 8 (7.4-10.4) um3 Neut % (Auto) 84.4 H (38-83) % Lymph % (Auto) 8.7 L (25-47) % [place] % (Auto) 5.9 (1-9) % Eos % (Auto) 0.4 (0-6) % Baso % (Auto) 0.6 (0-2) % Absolute Neuts (auto) 11.8 H (1.5-7.7) 10^3/ul Absolute Lymphs (auto) 1.2 (1.0-4.8) 10^3/ul Absolute Monos (auto) 0.8 (0-0.8) 10^3/ul Absolute Eos (auto) 0 (0-0.6) 10^3/ul Absolute Basos (auto) 0.1 (0-0.2) 10^3/ul Absolute Nucleated RBC 0 10^3/ul Nucleated RBC % 0 INR (Anticoag Therapy) 1.16 H (0.89-1.11) APTT 27.6 (26.0-36.3) seconds Sodium 132 L (133-145) mmol/L Potassium 3.8 (3.5-5.0) mmol/L Chloride 98 L (101-111) mmol/L Carbon Dioxide 27 (22-32) mmol/L Anion Gap 7 (2-11) mmol/L BUN 21 (6-24) mg/dL Creatinine 0.96 H (0.51-0.95) mg/dL Est GFR ( Amer) 76.0 (>60) Est GFR (Non-Af Amer) 59.1 (>60) BUN/Creatinine Ratio 21.9 H (8-20) Glucose 111 H (70-100) mg/dL Lactic Acid (0.5-2.0) mmol/L Calcium 9.7 (8.6-10.3) mg/dL Magnesium 2.2 (1.9-2.7) mg/dL Total Bilirubin 2.00 H (0.2-1.0) mg/dL AST 10 L (13-39) U/L ALT 10 (7-52) U/L Alkaline Phosphatase 108 H (34-104) U/L Troponin I 0.07 H* (<0.04) ng/mL C-Reactive Protein 83.55 H (< 5.00) mg/L B-Natriuretic Peptide ( - 100) pg/mL Total Protein 7.3 (6.4-8.9) g/dL Albumin 4.3 (3.2-5.2) g/dL Globulin 3.0 (2-4) g/dL Albumin/Globulin Ratio 1.4 (1-3) TSH 1.47 (0.34-5.60) mcIU/mL 09/29/16 09/29/16 09/29/16 Range/Units 18:40 18:40 19:55 WBC (3.5-10.8) 10^3/ul RBC (4.0-5.4) 10^6/ul Hgb (12.0-16.0) g/dl Hct (35-47) % MCV (80-97) fL MCH (27-31) pg MCHC (31-36) g/dl RDW (10.5-15) % Plt Count (150-450) 10^3/ul MPV (7.4-10.4) um3 Neut % (Auto) (38-83) % Lymph % (Auto) (25-47) % [place] % (Auto) (1-9) % Eos % (Auto) (0-6) % Baso % (Auto) (0-2) % Absolute Neuts (auto) (1.5-7.7) 10^3/ul Absolute Lymphs (auto) (1.0-4.8) 10^3/ul Absolute Monos (auto) (0-0.8) 10^3/ul Absolute Eos (auto) (0-0.6) 10^3/ul Absolute Basos (auto) (0-0.2) 10^3/ul Absolute Nucleated RBC 10^3/ul Nucleated RBC % INR (Anticoag Therapy) (0.89-1.11) APTT 25.7 L (26.0-36.3) seconds Sodium (133-145) mmol/L Potassium (3.5-5.0) mmol/L Chloride (101-111) mmol/L Carbon Dioxide (22-32) mmol/L Anion Gap (2-11) mmol/L BUN (6-24) mg/dL Creatinine (0.51-0.95) mg/dL Est GFR ( Amer) (>60) Est GFR (Non-Af Amer) (>60) BUN/Creatinine Ratio (8-20) Glucose (70-100) mg/dL Lactic Acid 1.8 (0.5-2.0) mmol/L Calcium (8.6-10.3) mg/dL Magnesium (1.9-2.7) mg/dL Total Bilirubin (0.2-1.0) mg/dL AST (13-39) U/L ALT (7-52) U/L Alkaline Phosphatase (34-104) U/L Troponin I (<0.04) ng/mL C-Reactive Protein (< 5.00) mg/L B-Natriuretic Peptide 12 ( - 100) pg/mL Total Protein (6.4-8.9) g/dL Albumin (3.2-5.2) g/dL Globulin (2-4) g/dL Albumin/Globulin Ratio (1-3) TSH (0.34-5.60) mcIU/mL 09/29/16 09/29/16 Range/Units 19:55 19:55 WBC 10.5 (3.5-10.8) 10^3/ul RBC 4.22 (4.0-5.4) 10^6/ul Hgb 9.8 L (12.0-16.0) g/dl Hct 31 L (35-47) % MCV 73 L (80-97) fL MCH 23 L (27-31) pg MCHC 32 (31-36) g/dl RDW 19 H (10.5-15) % Plt Count 149 L (150-450) 10^3/ul MPV 8 (7.4-10.4) um3 Neut % (Auto) 83.1 H (38-83) % Lymph % (Auto) 9.3 L (25-47) % [place] % (Auto) 6.6 (1-9) % Eos % (Auto) 0.4 (0-6) % Baso % (Auto) 0.6 (0-2) % Absolute Neuts (auto) 8.7 H (1.5-7.7) 10^3/ul Absolute Lymphs (auto) 1.0 (1.0-4.8) 10^3/ul Absolute Monos (auto) 0.7 (0-0.8) 10^3/ul Absolute Eos (auto) 0 (0-0.6) 10^3/ul Absolute Basos (auto) 0.1 (0-0.2) 10^3/ul Absolute Nucleated RBC 0 10^3/ul Nucleated RBC % 0 INR (Anticoag Therapy) (0.89-1.11) APTT (26.0-36.3) seconds Sodium (133-145) mmol/L Potassium (3.5-5.0) mmol/L Chloride (101-111) mmol/L Carbon Dioxide (22-32) mmol/L Anion Gap (2-11) mmol/L BUN 21 (6-24) mg/dL Creatinine (0.51-0.95) mg/dL Est GFR ( Amer) (>60) Est GFR (Non-Af Amer) (>60) BUN/Creatinine Ratio (8-20) Glucose (70-100) mg/dL Lactic Acid (0.5-2.0) mmol/L Calcium (8.6-10.3) mg/dL Magnesium (1.9-2.7) mg/dL Total Bilirubin (0.2-1.0) mg/dL AST (13-39) U/L ALT (7-52) U/L Alkaline Phosphatase (34-104) U/L Troponin I (<0.04) ng/mL C-Reactive Protein (< 5.00) mg/L B-Natriuretic Peptide ( - 100) pg/mL Total Protein (6.4-8.9) g/dL Albumin (3.2-5.2) g/dL Globulin (2-4) g/dL Albumin/Globulin Ratio (1-3) TSH (0.34-5.60) mcIU/mL Microbiology and Other Data: Microbiology 09/30/16 05:31 Aerobic Blood Culture - Preliminary Blood Venous No Growth Day 1 Anaerobic Blood Culture - Preliminary No Growth Day 1 09/30/16 05:28 Aerobic Blood Culture - Preliminary Blood Venous No Growth Day 1 Anaerobic Blood Culture - Preliminary No Growth Day 1 Assess/Plan/Problems-Billing Assessment: Mrs. Ivan is a 60yo F with a complex PMH including HHT, Factor V Leiden, multiple LE DVT, s/p IVC filter placement >10 years ago, right basal ganglia intraparenchymal hemorrhage in 2009 (while on Warfarin), HTN, chronic pain, who presents to ED with c/o left LE pain, found to have extensive DVT. - Patient Problems (1) DVT (deep venous thrombosis) Comment: - LE doppler shows extensive DVT extending from right femoral vein to the peroneal veins. - CT abd/pelvis revealed enlargement of IVC with likely clot in the IVC caudal from IVC filter. Enlargement and non-enhancement of the right common iliac vein , external iliac vein extending to the right common femoral vein. - Neurology and Hematology inputs appreciated - quite a difficult case with very limited options. Plan at this time is to continue heparin drip with no boluses and pain management. Will discuss further options, including IVC filter exchange and possible [facility]. (2) Chronic pain Comment: - Will continue Gabapentin and Oxycodone, but with her extensive acute DVT will continue Dilaudid and add Fentanyl patch. (3) Anemia Comment: - Continue Ferrous sulfate. (4) DVT prophylaxis Comment: - Heparin drip. Status and Disposition: Inpatient.
[2016-10-01] MEDS: Heparin DRIP 25,000 UNITS(*) 25,000 UNITS/500 ML BAG IV SCH (10:32)
[2016-10-01] MEDS ORDERED: Magnesium Hydroxide LIQ* 30 ML UDC PO PRN (11:17)
[2016-10-01 11:32] LABS: BUN/Creatinine Ratio 23.1 (8-20); Calcium 8.8 mg/dL (8.6-10.3); EGFR African American 96.6 (>60); EGFR Non-African American 75.1 (>60); Potassium 3.9 mmol/L (3.5-5.0)
[2016-10-01] MEDS ORDERED: Polyethylene Glycol 3350* 17 GM PACKET PO SCH (12:00)
[2016-10-01] MEDS ORDERED: Docusate CAP* 100 MG PO SCH (12:00)
--- NOTE | 2016-10-01 12:23 | ECHO ---
Patient: KERRI GOSS [facility] Rec#: [id number] : 1955 Date: 10/01/2016 Age: 60y Height: 180 cm / 70.9 in Weight: 89 kg / 196.2 lbs Sex: F BSA: 2.09 Room#: [facility] Admit Date#: 09/29/2016 Type: Inpatient Referring: Essie Capellan MD Reading: Camden Ortiz MD Home Health Scheduler: Caio Roque RDCS CC: Inez Christianson MD Transthoracic Echocardiogram Indication: SYSTOLIC MURMUR BP: 128/64 HR: 103 Rhythm: Tachycardia Findings History: DVT,chest cta hereditary, hemorrohage s/p ivc filter,prior head bleed. Technical Comments: The study is technically difficult. The study is technically limited due to poor acoustic windows. The study is technically limited due to patient body habitus. Left Ventricle: The left ventricular chamber size is normal. Mild concentric left ventricular hypertrophy is observed. The left ventricle appears hyperdynamic. The estimated ejection fraction is greater than 65%. Abnormal left ventricular diastolic filling is observed, consistent with impaired relaxation. Left Atrium: The left atrial chamber size is normal. Right Ventricle: The right ventricular cavity size is normal. The right ventricular global systolic function is normal. Right Atrium: The right atrium is slightly dilated. Aortic Valve: The aortic valve is trileaflet. The aortic valve leaflets are mildly thickened. There is aortic annular calcification. There is no evidence of aortic regurgitation. There is borderline aortic stenosis present. The mean gradient of the aortic valve is 8 mmHg. The peak instantaneous gradient of the aortic valve is 16 mmHg. The aortic valve area, by peak velocities, is calculated at 1.4 cm2. The aortic valve area, by VTI's, is calculated at 1.8 cm2. The highest aortic valve velocity was obtained with the standard probe from the A5C view. Mitral Valve: The mitral valve leaflets appear normal. Mild mitral annular calcification present. There is no evidence of mitral regurgitation. There is no evidence of mitral stenosis. Tricuspid Valve: The tricuspid valve appears normal in structure and function. There is no evidence of tricuspid valve regurgitation. Pulmonic Valve: The pulmonic valve structure is not well visualized. There is no evidence of pulmonic regurgitation. There is no pulmonic stenosis. Pericardium: There is no pericardial effusion. Aorta: There is no dilatation of the ascending aorta. There is no dilatation of the aortic arch. There is no dilation of the aortic root. Pulmonary Artery: The main pulmonary artery is not well visualized. Venous: The venous system is not well visualized. Conclusions The study is technically difficult. The study is technically limited due to poor acoustic windows. The study is technically limited due to patient body habitus. Mild concentric left ventricular hypertrophy is observed. The left ventricle appears hyperdynamic. The estimated ejection fraction is greater than 65%. Abnormal left ventricular diastolic filling is observed, consistent with impaired relaxation. The aortic valve leaflets are mildly thickened. There is aortic annular calcification. There is borderline aortic stenosis present. There is no evidence of tricuspid valve regurgitation. Compared to report of study from 04/26/2010the overall LV systolic function is better (was 55-60%), the trace to mild tricuspid regurgitation seen on prior study was not seen on current study (maybe due to suboptimal imaging). Measurements Name Value Normal Range RVIDd (AP) 2D 2.2 cm (0.9 - 2.6) RVDdMajor (2D) 2.7 cm (2.2 - 4.4) RAd ISD 4CH 4.8 cm (3.4 - 4.9) RA (A4C)W 2.6 cm (2.9 - 4.6) IVSd (2D) 1.3 cm (0.6 - 1) LVPWd (2D) 0.9 cm (0.6 - 1) LVIDd (2D) 4.6 cm (3.6 - 5.4) LVIDs (2D) 3.1 cm - LV FS (2D) 32 % (25 - 45) Aortic Annulus 2 cm (1.4 - 2.6) Ao root diameter (2D) 2.7 cm (2.1 - 3.5) Ascending Ao 3.2 cm (2.1 - 3.4) Aortic arch 2.8 cm (1.8 - 3.4) LA dimension (AP) 2D 3.4 cm (2.3 - 3.8) LAd ISD 4CH 4.4 cm (2.9 - 5.3) LA ISD 4CH W 3.5 cm (2.5 - 4.5) Name Value Normal Range LA ESV SP 4CH (A/L) 41 ml - LA ESV SP 2CH (A/L) 44 ml - LA ESV BP (A/L) 48 ml - LA ESV BP (A/L) index 22.8 ml/m2 - LA ESV SP 4CH (MOD) 37 ml - LA ESV SP 2CH (MOD) 42 ml - Name Value Normal Range MV E-wave Vmax 0.72 m/sec - MV deceleration time 90 msec - MV A-wave Vmax 0.99 m/sec - MV E:A ratio 0.73 ratio - LV septal e' Vmax 0.08 m/sec - LV lateral e' Vmax 0.09 m/sec - LV E:e' septal ratio 9 ratio - LV E:e' lateral ratio 8 ratio - Name Value Normal Range AV Vmax 2 m/sec - AV VTI 33 cm - AV peak gradient 16 mmHg - AV mean gradient 8 mmHg - LVOT diameter 1.7 cm - LVOT Vmax 1.2 m/sec - ADRI (continuity Vmax) 1.4 cm2 - ADRI (continuity VTI) 1.8 cm2 - Name Value Normal Range PV Vmax 1.4 m/sec -
--- NOTE | 2016-10-01 12:57 | TRS ---
DATE OF ADMISSION: 09/29/2016. DATE OF TRANSFER: 10/01/2016. DISCHARGE DIAGNOSES: 1. Extensive right lower extremity DVT, currently on a Heparin drip. 2. Chronic pain. 3. Chronic anemia. 4. History of hereditary hemorrhagic telangiectasia syndrome. 5. Factor V Leiden. 6. History of prior multiple lower extremity DVT's. 7. Status post IVC filter placement more than ten years ago. 8. Right basal ganglia intraparenchymal hemorrhage in 2009 (while on Warfarin). 9. Hypertension. 10. Minimally elevated troponin. MEDICATIONS AT THE TIME OF TRANSFER: 1. Calcium with magnesium one tablet p.o. daily. 2. Vitamin C 500 mg p.o. daily. 3. Atorvastatin 10 mg p.o. daily. 4. Cholecalciferol 2000 units p.o. daily. 5. Cyanocobalamin 1000 mcg p.o. daily. 6. Ferrous sulfate 325 mg p.o. daily. 7. Gabapentin 800 mg p.o. t.i.d. 8. Hydromorphone 1 mg IV q.2 hours prn severe pain. 9. Heparin drip at 39 ml/hour. 10. Metaxalone 800 mg p.o. t.i.d. 11. Temazepam 15 mg p.o. at bedtime. 12. Fentanyl patch 25 mcg topical daily. 13. Oxycodone SR 60 mg p.o. daily. HOSPITAL COURSE: Ms. Ivan is a 60-year-old lady with a past medical history as stated above who presented to the emergency room with complaints of severe right lower extremity pain. For more details about her presentation, I refer you to her history and physical. In the emergency room, the patient had a lower extremity Doppler that showed extensive deep venous thrombosis from the right common femoral vein to the peroneal veins. The patient was admitted for further management and she was started on a Heparin drip without boluses due to her history of prior intraparenchymal bleed. A chest x-ray showed no active cardiopulmonary disease. 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 A CTA of the chest showed no definite pulmonary embolus noted and no signs of aortic dissection. CTA of the head showed no evidence of aneurysmal dilatation or branch occlusion. There are areas of enhancement and enlarged vessels are noted in the right frontal lobe and left occipital lobe suspicious for AV malformations. CT of the brain showed a tiny area of hyperdensity in the right basal ganglia. Radiologist could not totally exclude a small hemorrhage, but Neurology felt that this represented calcification. She was seen in consultation by Hematology (Dr. South) and his assessment was that the patient is a 60-year-old female with a history of hereditary hemorrhagic telangiectasia, as well as additional prothrombotic state of heterozygous Leiden Factor V who presents with acute right DVT, history of multiple deep vein thrombosis, and extensive bleeding in the past on anticoagulation. He states that there were multiple articles in [facility] which show relative safety of anticoagulation in patient's with thrombotic events. This includes a correspondence to the [facility] from 2014 which revealed 700 patients increased risk of epistaxis but rare serious bleeding. However, this is overwritten by her personal history of recurrent hemorrhage. She cannot be safely anticoagulated. At this time, this is a very difficult decision because of her severe leg pain and her acute thrombosis is quite severe. He discussed with the patient the risk of catastrophic events on blood thinners, as well as likelihood of chronic pain with progression of her thrombosis. He felt that while in the hospital it was reasonable to stay on Heparin until further decisions were made. He recommended a CT venogram of the abdomen to determine the extension of her DVT and the CT revealed enlargement of the inferior vena cava with likely clot in the inferior vena cava caudal to the inferior vena cava filter. There is enlargement and nonenhancement of the right common iliac vein, external iliac vein, extending to the right common femoral vein. There are also incidental findings of myomatous changes of the uterus and multiple collaterals were noted in the subcutaneous tissue in the lower pelvis likely representing venous collaterals. There was an atrophic and scarred right kidney. Of note, either the patient's renal function is normal with a creatinine of 0.96. The patient was seen in consultation by Neurology (Dr. Hurley) and his impression was that the patient is at risk for recurrent intracranial hemorrhage , but there is no current evidence to suggest that that has happened. Clearly she is at risk whether she is anticoagulated or not. He also felt that maybe an evaluation by Vascular Surgery would be worth it and also raised the question about replacing her inferior vena cava. The patient was seen in follow-up by Hematology (Dr. Norris) and her impression was that the patient is in a clearly precarious position right now and the patient understands that we are forced to decide between clotting and bleeding risk. She does seem to be tolerating Heparin drip relatively well, only with episode of epistaxis. Dr. Norris recommended exploring the options with Vascular Surgery, including questions about replacing her IVC filter and how much systemic absorption of the local TPA would have, for example if she had a catheter placed into the clot under close observation. I contacted [facility] and discussed her case with the vascular surgeon python architect (Dr. Brunner) and he accepted the patient in transfer for further evaluation and decision to see if she is a candidate for other procedures, including embolectomy. Of note, the patient on admission had no complaints of chest pain, but had mild elevation of her troponin at 0.07 and 0.09. She had no significant arrhythmias on telemetry and an echocardiogram is being performed at this time and results will be added to this report when available. I believe this minimal elevation is not secondary to acute coronary syndrome and could be related to increased demand in the setting of this massive DVT. As stated, she had no acute EKG changes and no significant arrhythmias on telemetry. The patient is medically stable for discharge at this time to [facility]. PHYSICAL EXAMINATION: General: The patient is a pleasant lady lying in bed in no acute distress. Vital Signs: Temperature 98.4, heart rate 96, respiratory rate 16, oxygen saturation 95 percent on room air, blood pressure 127/71. HEENT : Pupils are equal. Moist mucus membranes. CVS: Normal S1, S2. Regular rate and rhythm with a systolic murmur. Chest: Breath sounds present bilaterally with no added sounds. Abdomen: Soft, bowel sounds are present. Extremities: There is right lower extremity edema with tenderness on palpation. Neuro: She is alert and oriented times three, able to move all four extremities. DIET: Regular. ACTIVITY: As tolerated. DISPOSITION: To [facility]. STATUS WHILE IN THE HOSPITAL: Inpatient. Please keep in mind, this is a summarized version of this patient's hospital stay. If you need more information, please feel free to call me at and the full medical records is being sent with her, including CD's with her images. Approximately 50 minutes were spent to complete this discharge. CC: Dr. Inez Christianson; Dr. Hurley; Dr. South; Dr. Norris; Dr. Andrews Brunner, [facility] * [id number]/[facility] #: [id number] [place]
[2016-10-01 13:42] VITALS: BP 113/68
== END 2016-10-01 15:32 | disposition short-term general hospital (02) | DRG 299 ==
LOC: ED 16:50 → MEDTELE 20:45
PROVIDERS: ADMIT Internal Medicine; ATTEND Internal Medicine
DX: I82.411 Acute embolism and thrombosis of right femoral vein (principal); Q25.72 Congenital pulmonary arteriovenous malformation; D68.51 Activated protein C resistance; I82.441 Acute embolism and thrombosis of right tibial vein; D53.9 Nutritional anemia, unspecified; I10 Essential (primary) hypertension; G89.29 Other chronic pain; R04.0 Epistaxis; R74.8 Abnormal levels of other serum enzymes; Q82.8 Other specified congenital malformations of skin; Z86.718 Personal history of other venous thrombosis and embolism; Z79.899 Other long term (current) drug therapy; Z88.6 Allergy status to analgesic agent; Z88.0 Allergy status to penicillin; Z82.49 Family history of ischemic heart disease and other diseases of the circulatory system; Z83.3 Family history of diabetes mellitus; Z82.3 Family history of stroke; Z80.3 Family history of malignant neoplasm of breast; Z91.041 Radiographic dye allergy status
CPT/HCPCS: 36415; 70450; 70496; 71020; 71275; 74177; 80048; 80053; 81003; 81015; 83605; 83735; 83880; 84443; 84484; 84520; 85025; 85610; 85730; 86140; 87040; 87086; 93005; 93306; 99223; 99233; A9270-GY; J1170; Q9967

== ENCOUNTER 2019-08-31 14:36 | Observation (INO) | payer SELFPAY ==
[2019-08-31] MEDS ORDERED: NS 0.9% 1000 ML** 1,000 ML IV ONE (15:09)
[2019-08-31 15:32] LABS: ABS Eosinophils 0.1 10^3/ul (0-0.6); ABS Lymphocytes 0.6 10^3/ul (1.0-4.8); ABS Monocytes 0.3 10^3/ul (0-0.8); ABS Neutrophils 4.6 10^3/ul (1.5-7.7); Eosinophil % 0.9 %; Hematocrit 33 % (35-47); Hemoglobin 11.3 g/dL (12.0-16.0); Lymphocyte % 11.1 %; Mean Corpuscular HGB Conc 34 g/dL (31-36); Mean Corpuscular Hemoglobin 29 pg (27-31); Mean Corpuscular Volume 85 fL (80-97); Mean Platelet Volume 6.7 fL (7.4-10.4); Platelet Count 204 10^3/uL (150-450); Red Blood Count 3.92 10^6 /uL (3.70-4.87); Red Cell Distribution Width 15 % (10-15); White Blood Count 5.7 10^3/uL (3.5-10.8)
[2019-08-31 15:54] LABS: BUN/Creatinine Ratio 27.8 (8-20); Calcium 8.8 mg/dL (8.6-10.3); EGFR African American 98.7 (>60); EGFR Non-African American 81.6 (>60); Potassium 4.1 mmol/L (3.5-5.0)
--- NOTE | 2019-08-31 16:32 | ED ---
Throat Pain/Nasal Congestion - HPI Summary HPI Summary: Patient is a 63 y/o F w/ Hx of Leiden factor V, Hereditary Hemorrhagic Telangiectasia, and pulmonary AVM who presents to [facility] with complaints of right nare epistaxis. She states that the epistaxis episode lasted approximately 20 minutes and resolved. She states that it felt as if her bleeding was originating from her right sinus region. Patient notes moderate blood loss and is concerned for anemia. Patient reports extensive Hx of epistaxis. She states that she is followed by Dr. Mahajan locally and also by a HTT clinic at [place], noting that this clinic was the only group who was able to successfully embolize her. Dr. South is housekeeper/custodian/laundry worker. Son, who is present in the room, notes that the patient resting HR at home was around 125 bpm at home and her o2 sat was 77%. HR decreased to 88 BPM, o2 sat was around 80% some time after the son had arrived. In room, patient is on 10 L o2 NC. Home medications and allergies are reviewed. - History of Current Complaint Chief Complaint: EDEpistaxis Time Seen by Provider: 08/31/19 15:03 Hx Obtained From: Patient Onset/Duration: Lasting Minutes, Resolved Severity: Moderate Associated Signs And Symptoms: Positive: Nasal Discharge - epistaxis Cough: None - Allergies/Home Medications Allergies/Adverse Reactions: Allergies Allergy/AdvReac Type Severity Reaction Status Date / Time Iodine and Iodide Containing Allergy See Comment Verified 08/31/19 14:45 Produc Penicillins Allergy Swelling Verified 08/31/19 14:45 Of Face,Lips,& Throat No MRI Allergy See Comment Uncoded 06/05/16 23:42 Home Medications: Home Medications Cholecalciferol (Vitamin D3) [Vitamin D3] 2,000 unit PO DAILY 08/31/19 [History Confirmed 08/31/19] Gabapentin TAB(NF) [Neurontin 600 mg TAB(NF)] 600 mg PO BID 08/31/19 [History Confirmed 08/31/19] Gabapentin TAB(NF) [Neurontin 600 mg TAB(NF)] 900 mg PO BEDTIME 08/31/19 [ History Confirmed 08/31/19] Heparin Sodium,Porcine/Pf [Heparin 1,000 Unit/10 (100/ml)] 3.5 ml INJ DAILY [History Confirmed 08/31/19] PMH/Surg Hx/FS Hx/Imm Hx Endocrine/Hematology History: Reports: Hx Blood Disorders, Hx Blood Transfusions - 2 units PRBC's given today. First transfusion per Pt, Hx Anemia , Hx Unexplained Bleeding Denies: Hx Bone Marrow Disease, Hx Diabetes, Hx Systemic Lupus Erythematosus , Hx Sickle Cell Disease, Hx Thyroid Disease, Other Endocrine/Hematological Disorders Cardiovascular History: Reports: Hx Hypertension Respiratory History: Reports: Hx Chronic Bronchitis, Hx Chronic Obstructive Pulmonary Disease (COPD), Hx Pulmonary Edema, Other Respiratory Problems/ Disorders - Erdqc-[id number]-jyvr syndrome, avm's in lungs History: Reports: Hx Chronic Renal Failure - Single kidney; renal labs mildly out of range., Hx Renal Disease Musculoskeletal History: Reports: Hx Back Problems Sensory History: Reports: Hx Contacts or Glasses Opthamlomology History: Reports: Hx Contacts or Glasses Neurological History: Reports: Hx Migraine - Cancer History Cancer Type, Location and Year: 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 Removed surgically. No new growth. Occured over 10 years ago. No use of chemotherapy, or radiation. Hx Chemotherapy: No Hx Radiation Therapy: No - Surgical History Surgery Procedure, Year, and Place: 2004 back surgery; bone spur removed from spinal column Hx Anesthesia Reactions: No Infectious Disease History: No Infectious Disease History: Denies: Traveled Outside the [place] in Last 30 Days - Family History Known Family History: Positive: Other - No FHx of Breast CA Family History: No FHx of Breast CA - Social History Alcohol Use: Rare Substance Use Type: Reports: None Smoking Status (MU): Never Smoked Tobacco Review of Systems Negative: Fever - on vitals, temp is 98.1 F Positive: Epistaxis All Other Systems Reviewed And Are Negative: Yes Physical Exam - Summary Physical Exam Summary: Appearance: Well-appearing, Well-nourished, lying in bed comfortable Skin: Warm, dry, no obvious rash Eyes: sclera anicteric, no conjunctival pallor ENT: mucous membranes moist; there is dried blood in the right nare, the nasal septum appears to be chronically broken down Neck: deferred Respiratory: No signs of respiratory distress Cardiovascular: Appears well perfused, pulses are nml; tachycardia is noted Abdomen: deferred Musculoskeletal: Moving all 4 extremities without obvious discomfort Neurological: Awake and alert, mentation is normal, speech is fluent and appropriate Psychiatric: affect is normal, does not appear anxious or depressed Triage Information Reviewed: Yes Vital Signs On Initial Exam: Initial Vitals Temp Pulse Resp BP Pulse Ox 98.1 F 129 16 145/95 85 08/31/19 14:37 08/31/19 14:37 08/31/19 14:37 08/31/19 14:37 08/31/19 14:37 Vital Signs Reviewed: Yes Procedures - Sedation Patient Received Moderate/Deep Sedation with Procedure: No Diagnostics - Vital Signs Vital Signs Temp Pulse Resp BP Pulse Ox 08/31/19 15:00 110 92 08/31/19 14:37 98.1 F 129 16 145/95 85 - Laboratory Lab Results: Lab Results 08/31/19 08/31/19 08/31/19 Range/Units 15:21 15:21 15:21 WBC 5.7 (3.5-10.8) 10^3/uL RBC 3.92 (3.70-4.87) 10^6 /uL Hgb 11.3 L (12.0-16.0) g/dL Hct 33 L (35-47) % MCV 85 (80-97) fL MCH 29 (27-31) pg MCHC 34 (31-36) g/dL RDW 15 (10-15) % Plt Count 204 (150-450) 10^3/uL MPV 6.7 L (7.4-10.4) fL Neut % (Auto) 81.3 % Lymph % (Auto) 11.1 % Pendleton % (Auto) 6.0 % Eos % (Auto) 0.9 % Baso % (Auto) 0.7 % Absolute Neuts (auto) 4.6 (1.5-7.7) 10^3/ul Absolute Lymphs (auto) 0.6 L (1.0-4.8) 10^3/ul Absolute Monos (auto) 0.3 (0-0.8) 10^3/ul Absolute Eos (auto) 0.1 (0-0.6) 10^3/ul Absolute Basos (auto) 0.0 (0-0.2) 10^3/ul Absolute Nucleated RBC 0.0 10^3/ul Nucleated RBC % 0.0 Sodium 141 (135-145) mmol/L Potassium 4.1 (3.5-5.0) mmol/L Chloride 106 (101-111) mmol/L Carbon Dioxide 30 (22-32) mmol/L Anion Gap 5 (2-11) mmol/L BUN 20 (6-24) mg/dL Creatinine 0.72 (0.51-0.95) mg/dL Est GFR ( Amer) 98.7 (>60) Est GFR (Non-Af Amer) 81.6 (>60) BUN/Creatinine Ratio 27.8 H (8-20) Glucose 115 H (70-100) mg/dL Lactic Acid 1.5 (0.5-2.0) mmol/L Calcium 8.8 (8.6-10.3) mg/dL Blood Type Antibody Screen Antibody Identification Direct Antiglob Test 08/31/19 Range/Units 15:21 WBC (3.5-10.8) 10^3/uL RBC (3.70-4.87) 10^6 /uL Hgb (12.0-16.0) g/dL Hct (35-47) % MCV (80-97) fL MCH (27-31) pg MCHC (31-36) g/dL RDW (10-15) % Plt Count (150-450) 10^3/uL MPV (7.4-10.4) fL Neut % (Auto) % Lymph % (Auto) % Pendleton % (Auto) % Eos % (Auto) % Baso % (Auto) % Absolute Neuts (auto) (1.5-7.7) 10^3/ul Absolute Lymphs (auto) (1.0-4.8) 10^3/ul Absolute Monos (auto) (0-0.8) 10^3/ul Absolute Eos (auto) (0-0.6) 10^3/ul Absolute Basos (auto) (0-0.2) 10^3/ul Absolute Nucleated RBC 10^3/ul Nucleated RBC % Sodium (135-145) mmol/L Potassium (3.5-5.0) mmol/L Chloride (101-111) mmol/L Carbon Dioxide (22-32) mmol/L Anion Gap (2-11) mmol/L BUN (6-24) mg/dL Creatinine (0.51-0.95) mg/dL Est GFR ( Amer) (>60) Est GFR (Non-Af Amer) (>60) BUN/Creatinine Ratio (8-20) Glucose (70-100) mg/dL Lactic Acid (0.5-2.0) mmol/L Calcium (8.6-10.3) mg/dL Blood Type A Positive Antibody Screen Positive Antibody Identification Pending Direct Antiglob Test Pending Result Diagrams: 08/31/19 15:21 08/31/19 15:21 Lab Statement: Any lab studies that have been ordered have been reviewed, and results considered in the medical decision making process. Re-Evaluation - Re-Evaluation First Eval Re-Evaluation Time: 17:00 Comment: Consults and workup done were discussed with the patient. Family and patient are uncomfortable with patient discharge to home and patient would like to be admitted to hospital for observation. EENT Course/Dx - Course Course Of Treatment: Patient is a 63 y/o F w/ Hx of Leiden factor V, Hereditary Hemorrhagic Telangiectasia, and pulmonary AVM who presents to [facility] with complaints of right nare epistaxis. She states that the epistaxis episode lasted approximately 20 minutes and resolved. She states that it felt as if her bleeding was originating from her right sinus region. Patient notes moderate blood loss and is concerned for anemia. Patient reports extensive Hx of epistaxis. She states that she is followed by Dr. Mahajan locally and also by a HTT clinic at [place], noting that this clinic was the only group who was able to successfully embolize her. Dr. South is housekeeper/custodian/laundry worker. Son, who is present in the room, notes that the patient resting HR at home was around 125 bpm at home and her o2 sat was 77%. HR decreased to 88 BPM, o2 sat was around 80% some time after the son had arrived. In room, patient is on 10 L o2 NC. On physical exam, there is dried blood in the right nare, the nasal septum appears to be chronically broken down. Bloodwork was obtained and within normal limits with exception of Hgb 11.3, Hct 33, MPV 6.7, absolute lymphs 0.6, BUN/creatinine ratio 27.8, glucose 115. During ED course, patient received fluids. 1532 - Patient's case was discussed with Dr. Prado, ENT consult recommended. 1557 - Patient's case was discussed with Dr. Muniz, ENT, observation and packing if bleeding restarts is recommended. Consults and workup done were discussed with the patient. Family and patient are uncomfortable with patient discharge to home and patient would like to be admitted to hospital for observation. 1705 - Patient's desire to be admitted was discussed with Dr. Muniz ENT. Dr. Muniz will consult as needed. 1710 - Patient's case was discussed with Dr. Figueroa, Dr. Figueroa accepts for admission. - Diagnoses Provider Diagnoses: Epistaxis, recurrent - Provider Notifications Discussed Care Of Patient With: Cortez Muniz Time Discussed With Above Provider: 15:57 Instructed by Provider To: Other - 1532 - Patient's case was discussed with Dr. Prado, ENT consult recommended. 1557 - Patient's case was discussed with Dr. Muniz ENT, observation and packing if bleeding restarts is recommended. 1705 - Patient's desire to be admitted was discussed with Dr. Muniz ENT. Dr. Muniz will consult as needed. 1710 - Patient's case was discussed with Dr. Figueroa, Dr. Figueroa accepts for admission. Discharge ED - Sign-Out/Discharge Documenting (check all that apply): Patient Departure - admit - Discharge Plan Condition: Stable Disposition: ADMITTED TO [facility] Referrals: Inez Christianson MD [Primary Care Provider] - - Attestation Statements Document Initiated by Scribe: Yes Documenting Scribe: CLAIRE GENAO Provider For Whom Clifford is Documenting (Include Credential): MAIKEL STEPHENSON MD Scribe Attestation: CLAIRE Vega, scribed for MAIKEL STEPHENSON MD on 08/31/19 at 1817. Status of Scribe Document: Ready
[2019-08-31 16:57] LABS: Urine Appearance Cloudy; Urine Bilirubin Negative (Negative); Urine Blood Negative (Negative); Urine Color Yellow; Urine Glucose Negative (Negative); Urine Ketones Negative (Negative); Urine Nitrite Negative (Negative); Urine Protein Negative (Negative); Urine Specific Gravity 1.021 (1.010-1.030); Urine Urobilinogen Negative (Negative)
[2019-08-31 17:04] LABS: Urine Bacteria Absent (Absent); Urine Red Blood Cell Trace(0-2/hpf) (Absent); Urine Squamous Epithelial Cell Present (Absent); Urine White Blood Cell 1+(6-10/hpf) (Absent)
[2019-08-31] MEDS ORDERED: Ondansetron INJ* 2 MG/ML VIAL IV PRN (18:18)
[2019-08-31] MEDS ORDERED: Acetaminophen TAB* 325 MG PO PRN (18:18)
[2019-08-31] MEDS ORDERED: NS 0.9% 1000 ML** 1,000 ML IV SCH (18:30)
[2019-08-31] MEDS ORDERED: Gabapentin CAP(*) 300 MG PO SCH (21:00)
--- NOTE | 2019-08-31 22:30 | HP ---
CC: Dr. Inez Christianson * MEDICINE HISTORY AND PHYSICAL: DATE OF ADMISSION: 08/31/19 PROVIDER: Julissa Castano NP. ATTENDING PHYSICIAN: Dr. Essie Don * (dictated by Julissa Castano NP). PRIMARY CARE PROVIDER: Dr. Inez Christianson. OUTPATIENT KNOWLEDGE ANALYST: Dr. Saúl South. OUTPATIENT ENT PHYSICIAN: Dr. Mahajan. CHIEF COMPLAINT: Epistaxis. HISTORY OF PRESENT ILLNESS: Ms. Ivan is a 63-year-old female with a history significant for hereditary hemorrhagic telangiectasia and heterozygous factor V Leiden, who presented to the ER with concerns for epistaxis. Onset of the epistaxis occurred at home. Ms. Ivan states that she typically can manage this at home and usually uses a pack of peas with tissues and is able to achieve hemostasis. However, with this episode, there was concern for significant blood loss, and her family reported they were concerned about the heaviness of the bleeding with thick streams of clot noted from the right naris. Additionally after the nose bleeding had been successfully stopped, her son noted that her heart rate at home was about 125 beats per minute and her O2 sat was 77% and she was typically on 8 to 10 L of nasal cannula. Given this finding , they brought her into the ER for further evaluation. Here in the ER, she did have labs drawn, which showed a hemoglobin of 11.3, hematocrit of 33. The ER also touched base with her outpatient assistant food service director office and spoke with Dr. Prado, who confirmed that she is on heparin subcu routinely at home and also spoke with ENT, who recommended packing which the patient has declined. It was further determined that she may benefit from observation stay to monitor for further bleeding and to provide packing if needed. PAST MEDICAL HISTORY: Significant for: 1. Hereditary hemorrhagic telangiectasia. 2. Heterozygous factor V Leiden, on subcu heparin b.i.d. 3. Left lower extremity DVT. 4. Chronic kidney disease with 1 viable kidney. 5. Hypertension. 6. Chronic pain. 7. AVM in the lungs resulting in chronic hypoxic respiratory failure necessitating 8 to 10 L of nasal cannula at home. She reports her baseline O2 sat is around 92%. 8. History of right basal ganglia. 9. History of parenchymal hemorrhage in 2009. PAST SURGICAL HISTORY: Includes bone spur removal from spine and multiple coilings to the lungs secondary to AVMs. HOME MEDICATIONS: 1. Heparin subcu 7000 units b.i.d. 2. Gabapentin 600 mg b.i.d. and 900 mg at bedtime. 3. Ferrous sulfate 325 mg daily. 4. Cholecalciferol 2000 units daily. 5. Morphine sulfate ER 60 mg t.i.d. ALLERGIES: Include IODINE, PENICILLIN, and PERCOCET. FAMILY HISTORY: Includes a father with coronary artery disease, mother with diabetes, an aunt with breast cancer and a son with history of CVA. SOCIAL HISTORY: She is a former smoker. She notes that she smoked intermittently for several years. She quit over 20 years ago. She reports rare alcohol use. Denies any illicit drug use. She names her son, French Stafford, as her surrogate decision maker in the event of an emergency. REVIEW OF SYSTEMS: A 12-point review of systems was completed. All pertinent positives and negatives as per HPI. Other than mentioned are negative. PHYSICAL EXAMINATION VITAL SIGNS: Temperature 98.1, heart rate is 103, respiratory rate 20, blood pressure 148/65, O2 saturation 93% on 10 L nasal cannula. HEENT: Head is atraumatic and normocephalic. Pupils are equal, round, and reactive to light and accommodation. Extraocular movements are intact. Oral mucosa is moist. There is dry blood noted at the right naris. No blood noted to the oropharynx. NECK: Supple with full range of motion. No lymphadenopathy appreciated. LUNGS: Clear to auscultation. No wheezing, rales, or rhonchi noted. CARDIAC: Normal S1, S2 heart sounds. Regular rate and rhythm. Rate is tachycardic. Radial pulses and pedal pulses are symmetric, 2+ bilaterally. There is trace bilateral lower extremity edema. ABDOMEN: Soft, nontender, nondistended with normoactive bowel sounds. MUSCULOSKELETAL: All 4 extremities with full range of motion. No clubbing or cyanosis noted. NEURO: She is awake, alert and oriented x4. Speech is fluent. No focal deficits. Cranial nerves II through XII are grossly intact. Strength is 5/5 in the upper and lower extremities. SKIN: Appears warm and dry. DIAGNOSTIC STUDIES/LAB DATA: CBC: WBC 5.7, hemoglobin 11.3, hematocrit 33, platelet count 204. BMP: Sodium 141, potassium 4.1, chloride 106, carbon dioxide 30, BUN 20, creatinine 0.72, glucose 115, lactic acid 1.5, calcium 8.8. Old medical records were reviewed. ASSESSMENT AND PLAN: This is a 63-year-old female with a history significant for hereditary hemorrhagic telangiectasia and factor V Leiden, who presented to the ER status post epistaxis, on anticoagulation and risk for re-bleed. She is recommended to stay for observation overnight. Plans are as follows: 1. Epistaxis secondary to hereditary hemorrhagic telangiectasia in the nares. Ms. Ivan has declined packing, as she finds this very uncomfortable and states that she would typically prefer to control the bleeding with ice and pressure to start. She would be willing to have packing if the bleeding is unable to be controlled. She has been given a bucket of Rhino Rockets and ice packs to keep at her bedside for immediate intervention if needed. ENT was consulted in the ER and stated that they would be available for assistance if she has bleeding that requires further packing or ENT intervention. The ER is also available to help with the Rhino Rocket placement should this be a necessity overnight. The patient can likely go home tomorrow if no concerns for further bleeding. We discussed that packing may have to be inserted, if bleeding does occur recurrently, and she may need ENT follow up as an outpatient. 2. Factor V Leiden. I did touch base with the assistant food service director office. Ms. Ivan has not seen Dr. South apparently in over a year but was previously recommended to continue on 7000 units of heparin BID. This dose was confirmed per the records of the Hematology. They have agreed that the patient should continue heparin, as she is not actively bleeding and her risk for clotting and the sequelae from that is high. We will monitor for bleeding and adjust plan of care accordingly. 3. Anemia. Mild, appears stable and consistent with previous labs. Most recent H and H was 10 and 34 in December 2018. She has recurrently had anemia off and on. Recheck CBC tomorrow. 4. Tachycardia. Suspect secondary to blood loss. She denies chest pain or difficulty breathing beyond her baseline. I will give her a liter of fluid and obtain a baseline EKG. 5. Hypertension. She is mildly hypertensive, but also endorsing pain. She is not on any antihypertensives per her home medication list. Continue to monitor and consider additional medications should she remain hypertensive. 6. Chronic pain. Continue home regimen of gabapentin and morphine sulfate ER. 7. FEN. She is ordered 1 liter of fluid and regular diet. 8. DVT prophylaxis. Again, continue with home heparin subcu 7000 units b.i.d. ; additionally she is ordered SEBASTIAN hose. 9. Code status. She is a full code. She and her family were given a MOLST form for further review with her primary care physician. She is in the process of officially naming her son as the health care proxy. TIME SPENT: Approximately 65 minutes was spent on this admission with greater than half of the time spent [id number] with the patient and her family obtaining history and physical, performing physical examination, and reviewing plan of care. Plan of care was also reviewed with my attending, Dr. Don, who is in agreement. JULISSA CASTANO, [place] [id number]/CPS #: [id number] MTDNikhil
[2019-08-31] MEDS: Morphine TAB Extended Release (*) 30 MG TAB.ER PO SCH (23:28)
[2019-08-31] MEDS: Heparin VIAL(*) 10000 UNITS/ML VIAL (TEN THOUSAND) SUBCUT SCH (23:32)
[2019-09-01 06:51] LABS: ABS Eosinophils 0.1 10^3/ul (0-0.6); ABS Lymphocytes 1.4 10^3/ul (1.0-4.8); ABS Monocytes 0.4 10^3/ul (0-0.8); ABS Neutrophils 3.1 10^3/ul (1.5-7.7); Eosinophil % 2.3 %; Hematocrit 30 % (35-47); Hemoglobin 10.1 g/dL (12.0-16.0); Lymphocyte % 28.1 %; Mean Corpuscular HGB Conc 33 g/dL (31-36); Mean Corpuscular Hemoglobin 28 pg (27-31); Mean Corpuscular Volume 85 fL (80-97); Platelet Count 195 10^3/uL (150-450); Red Blood Count 3.56 10^6 /uL (3.70-4.87); Red Cell Distribution Width 15 % (10-15); White Blood Count 5.1 10^3/uL (3.5-10.8)
[2019-09-01 07:10] LABS: Calcium 8.9 mg/dL (8.6-10.3); Potassium 4.1 mmol/L (3.5-5.0)
[2019-09-01 07:16] LABS: BUN/Creatinine Ratio 27.8 (8-20); EGFR African American 98.7 (>60); EGFR Non-African American 81.6 (>60)
[2019-09-01] MEDS: Morphine TAB Extended Release (*) 30 MG TAB.ER PO SCH (07:36)
[2019-09-01] MEDS ORDERED: Ferrous Sulfate TAB* 325 MG PO SCH (09:00)
[2019-09-01] MEDS ORDERED: Gabapentin CAP(*) 300 MG PO SCH (09:00)
[2019-09-01] MEDS ORDERED: Cholecalciferol TAB* 1000 UNITS PO SCH (09:00)
--- NOTE | 2019-09-01 09:22 | DS ---
CC: Dr. Christianson; Dr. South * DISCHARGE SUMMARY: DATE OF ADMISSION: 08/31/19 DATE OF DISCHARGE: 09/01/19 PRIMARY CARE PROVIDER: Dr. Christianson. FUEL TANK SEALER AND TESTER: Dr. South. PRINCIPAL DIAGNOSIS: Epistaxis secondary to hereditary hemorrhagic telangiectasia. SECONDARY DIAGNOSES: 1. Heterozygous factor V Leiden. 2. Stage 2 chronic kidney disease. 3. Hypertension. 4. Chronic pain. 5. Chronic hypoxic respiratory failure secondary to arteriovenous malformations in the lungs secondary to hereditary hemorrhagic telangiectasia. DISCHARGE MEDICATIONS: 1. Gabapentin 600 mg p.o. morning and afternoon, 900 mg at bedtime. 2. Heparin 7000 units subcutaneous twice daily. 3. Ferrous sulfate 325 mg p.o. daily. 4. Cholecalciferol 2000 units p.o. daily. 5. Morphine sulfate ER 60 mg p.o. t.i.d. HOSPITAL COURSE: Ms. Ivan is a 63-year-old female who presented to the emergency room on 08/31/19 with significant epistaxis that was more profuse than usual. The patient typically has at least daily oozing related to her history of hereditary hemorrhagic telangiectasia; however, this bleeding was much more significant with large clots being noted to be exiting from the right nares. At home, the patient was noted to be tachycardiac and hypoxic after she successfully stopped the nosebleed. Because of the profuse nature of the bleed and associated findings of tachycardia and worsened hypoxia, the patient was brought to the emergency room for evaluation. The patient unfortunately also has a history of heterozygous factor V Leiden deficiency. She is on heparin 7000 subcutaneous twice daily to prevent clotting. This combination of bleeding and clotting issues is problematic. The decision was made to admit the patient under observation status to the hospital. She has had no further recurrent profuse nosebleed. She does tell me she continues to have the slight ooze, which drips postnasally. This is at baseline. She has been up to the bathroom and feeling stable with her ambulation. Her breathing is at baseline. At this point, she is feeling that she is ready to go home. Her hemoglobin did drop from 11.3 yesterday to 10.1 today. This is in the setting of receiving 1 L of fluid. I have asked that the patient get a followup CBC on 02/18. PHYSICAL EXAMINATION: On the day of discharge, the patient is awake, alert, and oriented, sitting up in bed, in no acute distress. Cardiac exam reveals normal S1, S2 with a regular rate and rhythm. Lungs are clear. Abdomen is soft , nontender, nondistended. She moves all 4 extremities symmetrically. There are no rashes on the skin. FOLLOWUP CONCERNS: The patient is being discharged home today, 09/01/19. ACTIVITY LEVEL: As tolerated. DIET: Regular. CONDITION ON DISCHARGE: Stable. The patient is to follow up with Dr. Christianson in the next 4 to 7 days and have a CBC on 09/06/19. TIME SPENT: Twenty five minutes was spent discharging this patient. [id number]/[facility] #: [id number] MTDD
[2019-09-01] MEDS: Heparin VIAL(*) 10000 UNITS/ML VIAL (TEN THOUSAND) SUBCUT SCH (11:48)
[2019-09-01 12:09] VITALS: BP 132/91
== END 2019-09-01 12:00 | disposition home or self-care (01) ==
LOC: ED 14:36 → MED 17:50
PROVIDERS: ADMIT Internal Medicine; ATTEND Hospitalist
DX: R04.0 Epistaxis (principal); I78.0 Hereditary hemorrhagic telangiectasia; D68.51 Activated protein C resistance; I12.9 Hypertensive chronic kidney disease with stage 1 through stage 4 chronic kidney disease, or unspecified chronic kidney disease; N18.2 Chronic kidney disease, stage 2 (mild); R00.0 Tachycardia, unspecified; G89.29 Other chronic pain; J96.11 Chronic respiratory failure with hypoxia; Z79.899 Other long term (current) drug therapy; Z87.891 Personal history of nicotine dependence
CPT/HCPCS: 36415; 80048; 81003; 81015; 83605; 85025; 86850; 86870; 86880; 86900; 86901; 87086; 96360; 96361; 96372; 99284; A9270-GY; G0378; J1644